=== PATIENT | female | born 1965 | race Caucasian/White ===

== ENCOUNTER → 2017-06-02 08:57 | Outpatient (CLI) | payer BC, SELFPAY ==
[2017-06-02 10:52] LABS: Cholesterol 263 mg/dL (200); High Density Lipoprotein 61 mg/dL; Triglycerides 120 mg/dL; Very Low Density Lipoprotein 24 mg/dL (5-40)
== END ==
PROVIDERS: Family Provider Family Medicine; PCP Family Medicine; Visit Provider Family Medicine
DX: E78.00 Pure hypercholesterolemia, unspecified (principal)
CPT/HCPCS: 36415; 80061

== ENCOUNTER → 2017-09-15 10:51 | Outpatient (CLI) | payer BC, SELFPAY ==
[2017-09-15 12:32] LABS: Cholesterol 173 mg/dL (200); Glucose 79 mg/dL (74-106); High Density Lipoprotein 64 mg/dL; Triglycerides 94 mg/dL; Very Low Density Lipoprotein 19 mg/dL (5-40)
== END ==
PROVIDERS: Family Provider Family Medicine; PCP Family Medicine; Visit Provider Family Medicine
DX: M25.551 Pain in right hip (principal); E78.00 Pure hypercholesterolemia, unspecified
CPT/HCPCS: 36415; 80061; 82947

== ENCOUNTER → 2018-03-17 08:34 | Outpatient (CLI) | payer BC, SELFPAY ==
[2018-03-17 10:40] LABS: Cholesterol 186 mg/dL (200); High Density Lipoprotein 63 mg/dL; Triglycerides 73 mg/dL; Very Low Density Lipoprotein 15 mg/dL (5-40)
--- OUTSIDE RECORDS SUMMARY | 2018-05-03 01:48 | XMS RPT_ITS ---
:1965 Author Organization [facility] Care Team Providers Name Role Phone NEHEMIAH DUMONT Referring Unavailable NEHEMIAH DUMONT Attending Unavailable NEHEMIAH DUMONT Referring Unavailable Aureliano Brower Attending Unavailable Aureliano Brower Referring Unavailable Aureliano Brower Primary Care Unavailable Aureliano Brower Attending Unavailable Aureliano Brower Primary Care Unavailable Auerliano Brower Attending Unavailable Aureliano Brower Referring Unavailable Aureliano Brower Primary Care Unavailable PROBLEMS PROBLEMS DATE TYPE CONDITION / CODE ATTENDING STATUS SOURCE Active Encounter for NA Active [place] [address] gynecological examination Clinic Main (general) (routine) [place] without abnormal findings Repository / Z01.419(ICD-10) Active Encounter for screening NA Active [place] [address] mammogram for malignant Clinic Main neoplasm of breast / [place] Z12.31(ICD-10) Repository Unknown 272.0 - Aureliano Anaya 8 hypercholesterolemia / Community 272.0(ICD-9) Hospital Repository Unknown E78.00 - Aureliano Anaya 8 hypercholesterolemia, Community unspecified / Hospital E78.00(ICD-10) Repository PROCEDURES PROCEDURES No Procedure Records FoundRESULTS RESULTS PROGRESS Observed: 04/21/2018 Status: COMPLETED Source: [place] 9:08 AM [facility] REPOSITORY HNO ID: [id number] Author: Bina Bailey Psr Service: (none) Author Type: (none) Type: Progress Notes Filed: 04/21/2018 9:09 AM Note Text: Spoke with patient, she is unsure about having a colonoscopy and needs to think about it, She would like to just have us send her a letter for her to have for when she is ready to schedule. Bina Bailey Psr PROGRESS Observed: 04/20/2018 Status: COMPLETED Source: [place] 12:17 PM [facility] REPOSITORY HNO ID: [id number] Author: Nehemiah Dumont Service: (none) Author Type: Physician Type: Progress Notes Filed: 04/20/2018 12:19 PM Note Text: TR OPEN ACCESS QUESTIONNAIRE 1. Are you or could you be ? No 2. Are you currently having any stomach/gastrointestinal issues at this time such as constipation, diarrhea, abdominal pain, rectal bleeding etc? No 3. Do you have an implanted device such as a defibrillator, pacemaker, Cardiac Stent or deep brain stimulation device? No 4. Do you have any new or past cardiac (heart) or pulmonary (lung) issues? No 5. Is the patient's BMI 40 or greater? No:Body mass index is 34.96 kg/m?.. Last Wt 04/20/18 : 182 lb (82.6 kg) Last Ht 04/20/18 : 5' 0.5 (1.537 m) 6. Have you had difficulty with prior sedations or complications with other procedures? No 7. Have you had difficulty with anesthesia previously re: ? Difficult intubation? No ? Other difficulty or allergic reaction to anesthesia other than post op N/V? No 8. Do you currently use oxygen or a breathing machine at night? No 9. Do you take any narcotics, depression or anti-Anxiety medications or 3 or more prescription drugs on a daily basis? No 10. Do you use any illegal or recreational drugs? No 11. Have you been hospitalized in the past 6 weeks? No 12. Are you on dialysis or have Chronic Kidney Disease? No 13. Have you been diagnosed with chronic liver disease such as hepatitis or cirrhosis? No 14. Do you have a seizure disorder? No 15. Do you have difficulty swallowing? No 16. Do you have ulcerative colitis or Crohn's disease? No 17. Do you take any Blood thinners, including Aspirin or fish oil? No 18. Do you have any blood disorders (re:hemophiliac)? No 19. Are you Diabetic? No 20. Any other important health information we should be made aware of prior to your colonoscopy? No 21. Any alcohol use: No. To be completed by LIP: Patient appropriate for Open Access Colonoscopy: Yes: appropriate for Open Access Procedure Checklist: Prior to closing the encounter: ? Complete questionnaire: Yes ? Confirm Prep order has been Ordered/Pended: Yes. ? Patient's procedure could be delayed if not given the script for the prep. Please ensure the prep is escripted to pharmacy or printed. Instructions for the prep will print upon filing or pending this smartset. ? Please send all open access questionnaires to [facility] Sched Pool #[id number] [facility] Observed: 04/20/2018 Status: COMPLETED Source: [place] 12:05 PM [facility] REPOSITORY HNO ID: [id number] Author: Mammography Coordinator Service: (none) Author Type: Physician Type: Letter Filed: 04/21/2018 11:31 PM Note Text: April 20, 2018 PID: [id number] Ashley Zamarripa [address] [place] [address] Dear Ms. Zamarripa, We are pleased to inform you that the results of your recent breast imaging exam on 04/20/2018 are normal. Your mammogram demonstrates that you have dense breast tissue, which could hide abnormalities. Dense breast tissue, in and of itself, is a relatively common condition. Therefore, this information is not provided to cause undue concern; rather, it is to raise your awareness and promote discussion with your health care provider regarding the presence of dense breast tissue in addition to other risk factors. Early detection of cancer is very important. We also understand recommendations regarding breast cancer screening are controversial. Please discuss with your primary care provider which strategy is best for you and whether a mammogram is right for you. Your imaging studies and report will be kept on file at [facility] as part of your permanent medical record and are available for your continuing care. Thank you for allowing us to help in meeting your health care needs. Sincerely, Dr. Wilburn Interpreting Radiologist [facility] (Normal over 40) HPV W/GENOTYPE Collected: 04/20/2018 Status: F Source: [place] 11:59 AM [facility] REPOSITORY TYPE CODE TESTS RESULT OUT OF REFERENCE UNITS RANGE LAB HPVT16 HPV HighRisk Negative for Type 16 HPV DNA high risk type 16 by PCR. LAB HPVT18 HPV HighRisk Negative for Type 18 HPV DNA high risk type 18 by PCR. LAB HPVHRO HPV HighRisk Negative for Other HPV DNA high risk types: 31,33,35,39,45 ,51,52,56,58,5 9,66,68 by PCR. Result Comment: This test was developed and its performance characteristics determined by [facility]'s [facility] [place] [facility] It has not been cleared or approved by the FDA. [facility] is regulated under CLIA as qualified to perform high-complexity testing. This test is used for clinical purposes. It should not be regarded as inv estigational or for research. Performed By: #### HPVHRR #### [facility] [address], [place] [address] CYTOLOGY Observed: 04/20/2018 Status: C Source: [place] 11:59 AM [facility] REPOSITORY ADDITIONAL PROCEDURES PRESENT Specimen originated from [facility] Specimen #: [id number] Submitting Physician: NEHEMIAH DUMONT M.D. ([id number]) SPECIMEN SUBMITTED A: CERVICAL, SCREENING, FLUID FINAL DIAGNOSIS A. CERVICAL, SCREENING, FLUID Satisfactory for interpretation. Negative for intraepithelial lesion or malignancy. Acute inflammation. This specimen has been analyzed by the ThinPrep Imaging System, an automated imaging and review system, which assists the laboratory in evaluating cells on ThinPrep Pap tests. Following automated imaging, selected adams from every slide are reviewed by a director of radio services. MARY Arnold(ASCP) (Electronic Signature) ADDITIONAL PROCEDURE(S) HUMAN PAPILLOMA VIRUS Date Ordered: 04/21/2018 Date Reported: 04/22/2018 Procedure Results and Interpretation Negative for HPV DNA high risk type 16 by PCR. Negative for HPV DNA high risk type 18 by PCR. Negative for HPV DNA high risk types: 31,33,35,39,45,51,52,56,58,59,66,68 by PCR. This test was developed and its performance characteristics determined by [facility]'s [facility] [place] ([facility]). It has not been cleared or approved by the FDA. [facility] is regulated under CLIA as qualified to perform high-complexity testing. This test is used for clinical purposes. It should not be regarded as investigational or for research. CLINICAL DATA ROUTINE EXAM, HPV Testing: Yes, automatic HPV patients over 30 Date of Last Menstrual Period: Postmenopausal STAINS A: CERVICAL, SCREENING, FLUID THIN PREP DIRECTOR OF RADIOLOGY Nicky Macdonald M.D., Incinerator Plant Laborer Date of Report: 04/24/2018 Date of Procedure: 04/20/2018 Date of Receipt: 04/21/2018 Submitted by: NEHEMIAH DUMONT M.D. ([id number]) Location: [place] Diagnostic interpretation performed at [facility], [address] [place] [address]. The Pap Smear is a screening test for cervical cancer. False negative results occur with all screening tests, emphasizing the need for rescreening at recommended intervals, and clinical correlation. PROGRESS Observed: 04/20/2018 Status: COMPLETED Source: [place] 11:36 AM [facility] REPOSITORY HNO ID: [id number] Author: Nehemiah Dumont Service: (none) Author Type: Physician Type: Progress Notes Filed: 04/20/2018 12:08 PM Note Text: Ashley Zamarripa is a 52 year old who presents for her annual gynecologic exam without complaints. Menses: none. Contraception: menopause HPV vaccine: No Last Pap: 2013 normal HPV: negative History of abnormal pap: No Last mammogram: today pending Sexually active: Yes Obstetric History T0 L2 SAB1 TAB0 Ectopic0 Multiple0 Live Births0 PAST MEDICAL HISTORY Diagnosis Date - Costochondritis PAST SURGICAL HISTORY Procedure Laterality Date - DELIVERY ONLY - DANDC, DIAG AND/OR THERAPEUTIC FAMILY HISTORY Problem Relation Age of Onset - Diabetes Mother Diet controlled - other (hip problem) Mother Hip replacements - other (Heart problem) Father Stent placed SOCIAL HISTORY Social History Substance Use Topics - Smoking status: Never Smoker - Smokeless tobacco: Never Used - Alcohol use No REVIEW OF SYSTEMS Abdomen: No abdominal pain, nausea, vomiting, diarrhea, or constipation. No bloating, early satiety, indigestion, or increased flatulence. Bladder: No dysuria, gross hematuria, urinary frequency, urinary urgency, or incontinence. Breast: No breast lumps, nipple d/c, overlying skin changes, redness or skin retraction. Allergies and current medication updated:Yes EXAM: Ht 5' .5 (1.54m) Wt 182 lb (82.6kg) BMI 34.95 kg/(m2). GENERAL: pleasant, female in no apparent distress HEENT: Normocephalic, atraumatic, mucus membranes moist and no lesions NECK: Supple, full range of motion, no adenopathy and thyroid normal DERMATOLOGY: Normal, without lesions, non-icteric and non-hirsute BREAST: soft, non-tender, symmetric, no dominant mass, normal nipple-areolar complex, no lymphadenopathy and no nipple discharge CHEST: Normal inspiratory effort ABDOMEN: soft, non-tender and no masses PELVIC: external genitalia normal, normal Bartholin's glands, urethra, [place]'s glands, no vulvar lesions, no cervical lesions, good vaginal support, physiologic discharge present, normal appearing perineal body and perianal region BIMANUAL: uterus normal size, shape and consistency, no adnexal masses and non-tender RECTOVAGINAL: deferred. NEURO: alert and oriented x3,exam grossly non-focal EXTREMITIES: normal ASSESSMENT/PLAN: 1) Health maintenance: Pap done with HPV. Mammogram ordered. 2) Contraception: menopause. Contraceptive options reviewed and information provided. 3) STD screening: Declined STD check. 4) Follow up one year or sooner as needed Nehemiah Dumont MD [facility] SCREENING Observed: 04/20/2018 Status: F Source: [place] 11:20 AM [facility] REPOSITORY * * *Final Report* * * DATE OF EXAM: Apr 20 2018 11:20AM [facility] [id number] - [facility] SCREENING / PROCEDURE REASON: multiple diagnoses * * * * Physician Interpretation * * * * RESULT: #[id number] - [facility] SCREENING BILATERAL DIGITAL SCREENING MAMMOGRAM WITH CAD: 04/20/2018 HISTORY: Screening Mammogram - patient reports NO breast symptoms /priors available for comparison. RESULT: TECHNIQUE: The study was acquired using full field digital technology and interpreted from soft copy. Current study was also evaluated with a Computer Aided Detection (CAD). Comparison is made to exams dated: 04/14/2017 mammogram, 03/27/2016 mammogram, 02/11/2015 mammogram, and 01/10/2013 mammogram - [facility]. The tissue of both breasts is heterogeneously dense. This may lower the sensitivity of mammography. No significant masses, calcifications, or other findings are seen in either breast. There has been no significant interval change. IMPRESSION: There is no mammographic evidence of malignancy. A 1 year screening mammogram is recommended. Dixon Wilburn M.D., jr/zeinab:04/20/2018 12:05:37 Cut File Clerk(s): RT Patrice(R)(M), [facility] letter sent: Normal over 40 Mammogram BI-RADS: 1 Negative Multiple national specialty organizations have released breast cancer screening guidelines for women at average risk for developing breast cancer - guidelines that are based on both evidence and opinion, yet differ on when to start and how often to screen for breast cancer. With representation from Breast Imaging, Internal Medicine, Women's Health, Family Medicine, and Medical/Surgical Oncology, the [facility] has carefully reviewed the data and reached the following consensus: 1) All women should engage in shared decision-making with their providers to decide when to start and how often to screen; 2) All women should have the opportunity to start screening mammography at age 40; 3) For women ages 45-55, we recommend annual screening mammograms; 4) For women ages 55 and over, we support both the transition from an annual to a biennial interval if this aligns more with patient's values and preferences, or continuation with annual screening; 5) All women should discuss with their providers when to stop screening mammograms. Firearms Expert: Zeinab Transcribe Date/Time: Apr 20 2018 10:48A Dictated by: DIXON WILBURN MD This examination was interpreted and the report reviewed and electronically signed by: DIXON WILBURN MD on Apr 20 2018 12:05PM EST [id number] CNOV Observed: 04/20/2018 Status: COMPLETED Source: [place] 11:20 AM [facility] REPOSITORY Office Visit (WOOB) ASHLEY ZAMARRIPA ([id number]) 1965 F Date Time Provider Department 04/20/18 11:20 AM NEHEMIAH DUMONT During your visit today, we recorded the following information about you: Blood pressure Weight Height 104/70 82.6 kg 1.537 m Nehemiah Dumont MD 04/20/2018 12:08 PM Signed Ashleyamanda Zamarripa is a 52 year old who presents for her annual gynecologic exam without complaints. Menses: none. Contraception: menopause HPV vaccine: No Last Pap: 2013 normal HPV: negative History of abnormal pap: No Last mammogram: today pending Sexually active: Yes Obstetric History T0 L2 SAB1 TAB0 Ectopic0 Multiple0 Live Births0 PAST MEDICAL HISTORY Diagnosis Date - Costochondritis PAST SURGICAL HISTORY Procedure Laterality Date - DELIVERY ONLY - DANDC, DIAG AND/OR THERAPEUTIC FAMILY HISTORY Problem Relation Age of Onset - Diabetes Mother Diet controlled - other (hip problem) Mother Hip replacements - other (Heart problem) Father Stent placed SOCIAL HISTORY Social History Substance Use Topics - Smoking status: Never Smoker - Smokeless tobacco: Never Used - Alcohol use No REVIEW OF SYSTEMS Abdomen: No abdominal pain, nausea, vomiting, diarrhea, or constipation. No bloating, early satiety, indigestion, or increased flatulence. Bladder: No dysuria, gross hematuria, urinary frequency, urinary urgency, or incontinence. Breast: No breast lumps, nipple d/c, overlying skin changes, redness or skin retraction. Allergies and current medication updated:Yes EXAM: Ht 5' .5 (1.54m) Wt 182 lb (82.6kg) BMI 34.95 kg/(m2). GENERAL: pleasant, female in no apparent distress HEENT: Normocephalic, atraumatic, mucus membranes moist and no lesions NECK: Supple, full range of motion, no adenopathy and thyroid normal DERMATOLOGY: Normal, without lesions, non-icteric and non-hirsute BREAST: soft, non-tender, symmetric, no dominant mass, normal nipple-areolar complex, no lymphadenopathy and no nipple discharge CHEST: Normal inspiratory effort ABDOMEN: soft, non-tender and no masses PELVIC: external genitalia normal, normal Bartholin's glands, urethra, [place]'s glands, no vulvar lesions, no cervical lesions, good vaginal support, physiologic discharge present, normal appearing perineal body and perianal region BIMANUAL: uterus normal size, shape and consistency, no adnexal masses and non-tender RECTOVAGINAL: deferred. NEURO: alert and oriented x3,exam grossly non-focal EXTREMITIES: normal ASSESSMENT/PLAN: 1) Health maintenance: Pap done with HPV. Mammogram ordered. 2) Contraception: menopause. Contraceptive options reviewed and information provided. 3) STD screening: Declined STD check. 4) Follow up one year or sooner as needed MD Nehemiah Chung MD 04/20/2018 12:19 PM Signed [facility] OPEN ACCESS QUESTIONNAIRE 1. Are you or could you be ? No 2. Are you currently having any stomach/gastrointestinal issues at this time such as constipation, diarrhea, abdominal pain, rectal bleeding etc? No 3. Do you have an implanted device such as a defibrillator, pacemaker, Cardiac Stent or deep brain stimulation device? No 4. Do you have any new or past cardiac (heart) or pulmonary (lung) issues? No 5. Is the patient's BMI 40 or greater? No:Body mass index is 34.96 kg/m?.. Last Wt 04/20/18 : 182 lb (82.6 kg) Last Ht 04/20/18 : 5' 0.5 (1.537 m) 6. Have you had difficulty with prior sedations or complications with other procedures? No 7. Have you had difficulty with anesthesia previously re: ? Difficult intubation? No ? Other difficulty or allergic reaction to anesthesia other than post op N/V? No 8. Do you currently use oxygen or a breathing machine at night? No 9. Do you take any narcotics, depression or anti-Anxiety medications or 3 or more prescription drugs on a daily basis? No 10. Do you use any illegal or recreational drugs? No 11. Have you been hospitalized in the past 6 weeks? No 12. Are you on dialysis or have Chronic Kidney Disease? No 13. Have you been diagnosed with chronic liver disease such as hepatitis or cirrhosis? No 14. Do you have a seizure disorder? No 15. Do you have difficulty swallowing? No 16. Do you have ulcerative colitis or Crohn's disease? No 17. Do you take any Blood thinners, including Aspirin or fish oil? No 18. Do you have any blood disorders (re:hemophiliac)? No 19. Are you Diabetic? No 20. Any other important health information we should be made aware of prior to your colonoscopy? No 21. Any alcohol use: No. To be completed by LIP: Patient appropriate for Open Access Colonoscopy: Yes: appropriate for Open Access Procedure Checklist: Prior to closing the encounter: ? Complete questionnaire: Yes ? Confirm Prep order has been Ordered/Pended: Yes. ? Patient's procedure could be delayed if not given the script for the prep. Please ensure the prep is escripted to pharmacy or printed. Instructions for the prep will print upon filing or pending this smartset. ? Please send all open access questionnaires to [facility] Sched Pool #[id number] Nehemiah Dumont MD 04/20/2018 12:19 PM Signed Health Information For Patients and the Community How to Prepare for Your Colonoscopy Using Golytely, Nulytely, Trilyte or Colyte Preparations IMPORTANT - Please Read These Instructions at Least 2 Weeks Before Your Colonoscopy [place] Instructions: ?Your bowel must be empty so that your doctor can clearly view your colon. Follow all of the instructions in this handout EXACTLY as they are written. If you do NOT follow the directions for when to start drinking the bowel preparation (see next page), your colonoscopy WILL be cancelled. ?Do NOT eat any solid food the ENTIRE day before your colonoscopy. ?Buy your bowel preparation at least 5 days before your colonoscopy. ?Do NOT mix the solution until the day before your colonoscopy. Designated Cross Cut Saw Operator on the Day of Your Exam A responsible family member or friend MUST come with you to your colonoscopy and REMAIN in the endoscopy area until you are discharged! You are NOT ALLOWED to drive, take a taxi or bus, or leave the Endoscopy Center ALONE. If you do not have a responsible bulk truck driver (family member or friend) with you to take you home, your exam cannot be done with sedation and will be cancelled. Medications Some of the medicines you take may need to be stopped or adjusted before your colonoscopy. You MUST call the doctor who ordered any of the following medicines at least 2 weeks before your colonoscopy. ?Blood thinners -- such as Coumadin? (warfarin), Plavix? (clopidogrel), Ticlid? (ticlopidine hydrochloride), Agrylin? (anagrelide), Xarelto? (Rivaroxaban), Pradaxa? (Dabigatran), Eliquis? (Apixaban), and Effient? (Prasugrel). ?Insulin or diabetes pills. Please call the doctor that monitors your glucose levels. Your insulin dosage may need to be adjusted due to the diet restrictions required with this bowel preparation. (Please bring your diabetes medicines with you on the day of your procedure.) If you take aspirin, take it and ALL other medications prescribed by your doctor. On the day of your colonoscopy, take your medications with a sip of water. Revised 05/2016 1 Five (5) Days Before Your Colonoscopy ?Do NOT take medicines that stop diarrhea -- such as Imodium?, Kaopectate?, or Pepto Bismol?. ?Do NOT take fiber supplements -- such as Metamucil?, Citrucel?, or Perdiem?. ?Do NOT take products that contain iron -- such as multi-vitamins -- (the label lists what is in the products). ?Do NOT take vitamin E. Buy the prescription bowel preparation solution at your local pharmacy or drugstore pharmacy. Three (3) Days Before Your Colonoscopy Do NOT eat high-fiber foods -- such as popcorn, beans, seeds (flax, sunflower, quinoa), multigrain bread, nuts, salad/vegetables, or fresh and dried fruit. One (1) Day Before Your Colonoscopy Only drink clear liquids the ENTIRE DAY before your colonoscopy. Do NOT eat any solid foods. Drink at least 8 ounces of clear liquids every hour after waking up. The clear liquids you can drink include: ?water, apple, or white grape juice; broth; coffee or tea (without milk or creamer); clear carbonated beverages such as lucy mariama or lemon-quileute soda; Gatorade? or other sports drinks (not red); Jhony-Aid? or other flavored drinks (not red). You may eat plain jello or other gelatins (not red) or popsicles (not red). Do NOT drink alcohol on the day before or the day of the procedure. 2 Revised 05/2016 When to Mix and Drink Your Bowel Prep Follow the instructions on the label. After mixing, place the solution in the refrigerator for a couple of hours before drinking. You may add the flavor packet that came with the bowel preparation. DO NOT add ice, sugar or any flavorings to the solution. Evening Before Your Colonoscopy ?Start drinking the bowel preparation at 6 PM the evening before your colonoscopy. Drink an 8-oz glass of bowel preparation every 10 minutes. You must finish drinking the solution by 9 PM the night before your scheduled procedure. ?You may continue to drink clear liquids only until midnight. Do NOT eat or drink ANYTHING after midnight the night before your procedure or your procedure may be cancelled. This is for your safety and will reduce the risk of having any food or liquid in your stomach move into your lungs (aspiration) during a procedure. If you take aspirin, take it and ALL other prescribed medicines with a sip of water on the day of your colonoscopy. Contact Information: If you are unable to keep your appointment or have any questions about the instructions, please call the facility where the procedure is being performed. Call between the hours of 8:00 AM and 5:00 PM. If you are calling after 5:00 PM, please call Nurse functional support analyst at [phone]. [facility] [address] [place] [address] Index # [id number] Revised 05/2016 3 Colonoscopy Procedure Overview Please Read Prior to the Procedure What is a Colonoscopy A colonoscopy is an outpatient procedure in which the inside of the large intestine (colon and rectum) is examined. A colonoscopy is commonly used to evaluate gastrointestinal symptoms, such as rectal and intestinal bleeding, abdominal pain, or changes in bowel habits. Colonoscopies are also performed in individuals without symptoms to check for colorectal polyps or cancer. A screening colonoscopy is recommended for anyone 50 years of age and older, and for anyone with parents, siblings or children with a history of colorectal cancer or polyps. What Happens Before a Colonoscopy To have a successful colonoscopy, your bowel must be empty so that your physician can clearly view the colon. To do this, it is very important to read and follow all of the instructions given to you at least 2 weeks BEFORE your exam. If your bowel is not empty, your colonoscopy will not be successful and may have to be repeated. If you feel nauseated or vomit while taking the bowel preparation, wait 30 minutes before drinking more fluid and start with small sips of solution. Some activity (such as walking) or a few soda crackers may help decrease the nausea you are feeling. If the nausea persists, please contact nurse shop and alteration tailor at [phone]. You may experience skin irritation around the anus due to the passage of liquid stools. To prevent and treat skin irritation, you should: ?Apply Vaseline? or Desitin? ointment to the skin around the anus before drinking the bowel preparation medications. These products can be purchased at any drugstore. ?Wipe the skin after each bowel movement with disposable wet wipes instead of toilet paper. These are found in the toilet paper area of the store. ?Sit in a bathtub filled with warm water for 10 to 15 minutes after you finish passing a stool; after soaking, blot the skin dry with a soft cloth, apply Vaseline? or Desitin? ointment to the anal area, and place a cotton ball just outside your anus to absorb leaking fluid. What Happens During a Colonoscopy During a colonoscopy, an experienced physician uses a colonoscope (a long, flexible instrument about 1/2 inch in diameter) to view the lining of the colon. The colonoscope is inserted into the rectum and advanced through the large intestine. If necessary during a colonoscopy, small amounts of tissue can be removed for analysis (a biopsy) and polyps can be identified and entirely removed. In many cases, a colonoscopy allows accurate diagnosis and treatment of colorectal problems without the need for a major operation. Revised 05/2016 5 ?You are asked to wear a hospital gown and an IV will be started. ?You are given a pain reliever and a sedative intravenously (in your vein). You will feel relaxed and somewhat drowsy. ?You will lie on your left side, with your knees drawn up towards your chest. ?A small amount of air is used to expand the colon so the physician can see the colon smith. ?You may feel mild cramping during the procedure. Cramping can be reduced by taking slow, deep breaths. ?The colonoscope is slowly withdrawn while the lining of your bowel is carefully examined. ?The procedure lasts from 30 minutes to 1 hour. What Happens After a Colonoscopy ?You will stay in a recovery room for observation until you are ready for discharge. ?You may feel some cramping or a sensation of having gas, but this quickly passes. ?If sedation has been given, a responsible family member or friend must drive you home. ?Avoid alcohol, driving, and operating machinery for 24 hours following the procedure. ?Unless otherwise instructed, you may immediately return to your normal diet. We recommend you wait until the day after your procedure to resume normal activities. ?If polyps were removed or a biopsy was taken, the physician performing your colonoscopy will tell you when it is safe to resume taking your blood thinners. ?If a biopsy was taken or a polyp was removed, you may notice a little amount of rectal bleeding for 1 to 2 days after the procedure. If you have a large amount of rectal bleeding, high or persistent fevers, or severe abdominal pain within the next 2 weeks, please go to your local emergency room and call the physician who performed your exam. 6 Revised 05/2016 ?Copyright 5449-2479 [facility]. All rights reserved. Revised 05/2016 Nehemiah Dumont MD 04/20/2018 12:32 PM Signed Addended by: NEHEMIAH DUMONT MD on: 04/20/2018 12:32 PM Modules accepted: Orders, Lior Grigsby APRN.QUARRYMAN 04/21/2018 8:55 AM Signed Addended by: MAYURI GRIGSBY on: 04/21/2018 08:55 AM Modules accepted: Orders Bina Bailey Psr 04/21/2018 9:09 AM Signed Spoke with patient, she is unsure about having a colonoscopy and needs to think about it, She would like to just have us send her a letter for her to have for when she is ready to schedule. Bina Bailey Psr Referring Provider: NEHEMIAH DUMONT [[id number]] Allergies As of Date: 04/20/2018 Noted Allergy Reaction PENICILLINS 11/24/2005 Date Reviewed: 04/20/2018 Reviewed by: Nehemiah Dumont - Fully Assessed Reason for Visit: Yearly Exam With Mammogram [188] Primary Visit Diagnosis:Special screening for malignant neoplasms, colon [Z12.11] Other Visit Diagnoses:Encounter for gynecological examination (general) (routine) without abnormal findings [Z01.419] Screening for cervical cancer [Z12.4] Encounter for screening for human papillomavirus (HPV) [Z11.51] Encounter for screening mammogram for breast cancer [Z12.31] Order(s):PAP FLUID CERVICAL SCREENING [7611259] Order #: [id number] IDALMIS SCREENING [3414152] Order #: [id number] FUTURE peg 3350-electrolytes (COLYTE) 240-22.72-6.72 -5.84 gram solutionTake 4,000 mL by mouth one time only for 1 dose.Disp: 4000 mLRfl: 0 COLONOSCOPY SCRN NOT HIGH RISK [Y0300YSZ] Order #: [id number] FUTURE Prescriptions as of 04/20/2018 Sig: PEG 3350 240 GRAM-ELECTROLYTE* Take 4,000 mL by mouth one ti* ATORVASTATIN 10 MG TABLET Take 10 mg by mouth daily at * AVIANE 0.1 MG-20 MCG TABLET Take 1 tablet by mouth once d* MULTIVITAMIN ORAL Take by mouth. Problem List As Of Date 04/20/2018 Noted Resolved Contraceptive management [Z30.9] INVALID FOR* Pure hypercholesterolemia [E78.00] INVALID FOR* Other instructions from your clinician: Health Information For Patients and the Community How to Prepare for Your Colonoscopy Using Golytely, Nulytely, Trilyte or Colyte Preparations IMPORTANT - Please Read These Instructions at Least 2 Weeks Before Your Colonoscopy Parikh Instructions: ?Your bowel must be empty so that your doctor can clearly view your colon. Follow all of the instructions in this handout EXACTLY as they are written. If you do NOT follow the directions for when to start drinking the bowel preparation (see next page), your colonoscopy WILL be cancelled. ?Do NOT eat any solid food the ENTIRE day before your colonoscopy. ?Buy your bowel preparation at least 5 days before your colonoscopy. ?Do NOT mix the solution until the day before your colonoscopy. Designated Cross Cut Saw Operator on the Day of Your Exam A responsible family member or friend MUST come with you to your colonoscopy and REMAIN in the endoscopy area until you are discharged! You are NOT ALLOWED to drive, take a taxi or bus, or leave the Endoscopy Center ALONE. If you do not have a responsible bulk truck driver (family member or friend) with you to take you home, your exam cannot be done with sedation and will be cancelled. Medications Some of the medicines you take may need to be stopped or adjusted before your colonoscopy. You MUST call the doctor who ordered any of the following medicines at least 2 weeks before your colonoscopy. ?Blood thinners -- such as Coumadin? (warfarin), Plavix? (clopidogrel), Ticlid? (ticlopidine hydrochloride), Agrylin? (anagrelide), Xarelto? (Rivaroxaban), Pradaxa? (Dabigatran), Eliquis? (Apixaban), and Effient? (Prasugrel). ?Insulin or diabetes pills. Please call the doctor that monitors your glucose levels. Your insulin dosage may need to be adjusted due to the diet restrictions required with this bowel preparation. (Please bring your diabetes medicines with you on the day of your procedure.) If you take aspirin, take it and ALL other medications prescribed by your doctor. On the day of your colonoscopy, take your medications with a sip of water. Revised 05/2016 1 Five (5) Days Before Your Colonoscopy ?Do NOT take medicines that stop diarrhea -- such as Imodium?, Kaopectate?, or Pepto Bismol?. ?Do NOT take fiber supplements -- such as Metamucil?, Citrucel?, or Perdiem?. ?Do NOT take products that contain iron -- such as multi- vitamins -- (the label lists what is in the products). ?Do NOT take vitamin E. Buy the prescription bowel preparation solution at your local pharmacy or drugstore pharmacy. Three (3) Days Before Your Colonoscopy Do NOT eat high-fiber foods -- such as popcorn, beans, seeds (flax, sunflower, quinoa), multigrain bread, nuts, salad/vegetables, or fresh and dried fruit. One (1) Day Before Your Colonoscopy Only drink clear liquids the ENTIRE DAY before your colonoscopy. Do NOT eat any solid foods. Drink at least 8 ounces of clear liquids every hour after waking up. The clear liquids you can drink include: ?water, apple, or white grape juice; broth; coffee or tea (without milk or creamer); clear carbonated beverages such as lucy mariama or lemon-quileute soda; Gatorade? or other sports drinks (not red); Jhony-Aid? or other flavored drinks (not red). You may eat plain jello or other gelatins (not red) or popsicles (not red). Do NOT drink alcohol on the day before or the day of the procedure. 2 Revised 05/2016 When to Mix and Drink Your Bowel Prep Follow the instructions on the label. After mixing, place the solution in the refrigerator for a couple of hours before drinking. You may add the flavor packet that came with the bowel preparation. DO NOT add ice, sugar or any flavorings to the solution. Evening Before Your Colonoscopy ?Start drinking the bowel preparation at 6 PM the evening before your colonoscopy. Drink an 8-oz glass of bowel preparation every 10 minutes. You must finish drinking the solution by 9 PM the night before your scheduled procedure. ?You may continue to drink clear liquids only until midnight. Do NOT eat or drink ANYTHING after midnight the night before your procedure or your procedure may be cancelled. This is for your safety and will reduce the risk of having any food or liquid in your stomach move into your lungs (aspiration) during a procedure. If you take aspirin, take it and ALL other prescribed medicines with a sip of water on the day of your colonoscopy. Contact Information: If you are unable to keep your appointment or have any questions about the instructions, please call the facility where the procedure is being performed. Call between the hours of 8:00 AM and 5:00 PM. If you are calling after 5:00 PM, please call Nurse functional support analyst at [phone]. [facility] [address] [place] [address] Index # [id number] Revised 05/2016 3 Colonoscopy Procedure Overview Please Read Prior to the Procedure What is a Colonoscopy A colonoscopy is an outpatient procedure in which the inside of the large intestine (colon and rectum) is examined. A colonoscopy is commonly used to evaluate gastrointestinal symptoms, such as rectal and intestinal bleeding, abdominal pain, or changes in bowel habits. Colonoscopies are also performed in individuals without symptoms to check for colorectal polyps or cancer. A screening colonoscopy is recommended for anyone 50 years of age and older, and for anyone with parents, siblings or children with a history of colorectal cancer or polyps. What Happens Before a Colonoscopy To have a successful colonoscopy, your bowel must be empty so that your physician can clearly view the colon. To do this, it is very important to read and follow all of the instructions given to you at least 2 weeks BEFORE your exam. If your bowel is not empty, your colonoscopy will not be successful and may have to be repeated. If you feel nauseated or vomit while taking the bowel preparation, wait 30 minutes before drinking more fluid and start with small sips of solution. Some activity (such as walking) or a few soda crackers may help decrease the nausea you are feeling. If the nausea persists, please contact nurse shop and alteration tailor at [phone]. You may experience skin irritation around the anus due to the passage of liquid stools. To prevent and treat skin irritation, you should: ?Apply Vaseline? or Desitin? ointment to the skin around the anus before drinking the bowel preparation medications. These products can be purchased at any drugstore. ?Wipe the skin after each bowel movement with disposable wet wipes instead of toilet paper. These are found in the toilet paper area of the store. ?Sit in a bathtub filled with warm water for 10 to 15 minutes after you finish passing a stool; after soaking, blot the skin dry with a soft cloth, apply Vaseline? or Desitin? ointment to the anal area, and place a cotton ball just outside your anus to absorb leaking fluid. What Happens During a Colonoscopy During a colonoscopy, an experienced physician uses a colonoscope (a long, flexible instrument about 1/2 inch in diameter) to view the lining of the colon. The colonoscope is inserted into the rectum and advanced through the large intestine. If necessary during a colonoscopy, small amounts of tissue can be removed for analysis (a biopsy) and polyps can be identified and entirely removed. In many cases, a colonoscopy allows accurate diagnosis and treatment of colorectal problems without the need for a major operation. Revised 05/2016 5 ?You are asked to wear a hospital gown and an IV will be started. ?You are given a pain reliever and a sedative intravenously (in your vein). You will feel relaxed and somewhat drowsy. ?You will lie on your left side, with your knees drawn up towards your chest. ?A small amount of air is used to expand the colon so the physician can see the colon smith. ?You may feel mild cramping during the procedure. Cramping can be reduced by taking slow, deep breaths. ?The colonoscope is slowly withdrawn while the lining of your bowel is carefully examined. ?The procedure lasts from 30 minutes to 1 hour. What Happens After a Colonoscopy ?You will stay in a recovery room for observation until you are ready for discharge. ?You may feel some cramping or a sensation of having gas, but this quickly passes. ?If sedation has been given, a responsible family member or friend must drive you home. ?Avoid alcohol, driving, and operating machinery for 24 hours following the procedure. ?Unless otherwise instructed, you may immediately return to your normal diet. We recommend you wait until the day after your procedure to resume normal activities. ?If polyps were removed or a biopsy was taken, the physician performing your colonoscopy will tell you when it is safe to resume taking your blood thinners. ?If a biopsy was taken or a polyp was removed, you may notice a little amount of rectal bleeding for 1 to 2 days after the procedure. If you have a large amount of rectal bleeding, high or persistent fevers, or severe abdominal pain within the next 2 weeks, please go to your local emergency room and call the physician who performed your exam. 6 Revised 05/2016 ?Copyright 1346-8793 [facility]. All rights reserved. Revised 05/2016 Prescriptions ordered this encounter Disp Refills Start End PEG 3350 240 GRAM-ELECTROLYTES 22.72* 4000* 0 04/21/2018 04/21/2018 Route: ORAL Sig: Take 4,000 mL by mouth one time only for 1 dose. Medications Discontinued During This Encounter VORTIOXETINE HYDROBROMIDE (BRINTELLI* 04/20/2018 Class: Historical Med Route: ORAL Sig: Take by mouth. Disc: Reason for discontinue is not on file. Disposition: Return in 1 year (on 04/20/2019) for Annual Exam. Follow-up and Disposition History Recorded Letter Text [address] [place] [address] 04/21/2018 Ashley Zamarripa [id number] Dear Ashley , As your healthcare provider, our records indicate that you are due for colorectal cancer screening. This is extremely important if you have any family history of colon cancer as well as to the general population over the age of 50. A colonoscopy is a preventative test that we offer to complete this screening. Most insurances will pay for this test without any out of pocket expense to the patient. Please contact our schedulers at [phone] to schedule an appointment or contact your primary care physician if you have any questions regarding colon cancer screening. As always, your health is of primary concern to our practice. We look forward to hearing from you. Sincerely, [facility] Encounter Status:Closed by NEHEMIAH DUMONT MD on 04/20/18 PROGRESS Observed: 04/20/2018 Status: COMPLETED Source: [place] 11:02 AM [facility] REPOSITORY HNO ID: [id number] Author: Yue Cadena Service: (none) Author Type: (none) Type: Progress Notes Filed: 04/20/2018 11:03 AM Note Text: Radiology Service Progress Note PATIENT NAME: Ashley Zamarripa DATE OF SERVICE: April 20, 2018 TIME: 11:02 AM PATIENT IDENTITY VERIFICATION COMPLETED USING TWO (2) METHODS: Patient confirmed name verbally and Date of . PATIENT GENDER DATA: Female. status: : No status: NO. PATIENT RELEVANT IMPLANT DATA REVIEWED: Not Applicable RADIOLOGY DEPARTMENT: [facility] IV DATA: Not applicable SIGNED BY: Yue Cadena April 20, 2018 11:02 AM LIPID PROFILE Collected: 03/17/2018 Status: F Source: [place] 8:49 AM [facility] REPOSITORY Order Comment: Order Date: 09/20/17 Order Info: [id number] - LIPID TYPE CODE TESTS RESULT OUT OF RANGE REFERENCE UNITS LAB L501.4900 200 mg/dL Normal CHOL 186 Result Comment: <200 mg/dL Desirable 200-240 mg/dL Borderline >240 mg/dL High Risk LAB L501.5000 mg/dL Normal TRIG 73 Result Comment: The drugs N-Acetylcysteine and Metamizole may falsely depress this assay. Serum Triglycerides Reference Interval Normal <150 mg/dL Borderline high 150 - 199 mg/dL High 200 - 499 mg/dL Very High > or = 500 mg/dL LAB L501.6400 mg/dL Normal HDL 63 Result Comment: The drugs N-Acetylcysteine and Metamizole may falsely depress this assay. Reference Range HDL <40 mg/dL Low HDL Cholesterol HDL >or= 60 mg/dL High HDL Cholesterol LAB L501.6500 0-130 mg/dL Normal LDL 108 LAB L501.6600 5-40 mg/dL Normal VLDL 15 Performed By: #### L500.4100 #### [facility] [place], [address] LIPID PROFILE Collected: 09/15/2017 Status: F Source: [place] 10:53 AM [facility] REPOSITORY Order Comment: Order Date: 06/07/17 Order Info: [id number] - LIPID Order Info: [id number] - GLU TYPE CODE TESTS RESULT OUT OF RANGE REFERENCE UNITS LAB L501.4900 200 mg/dL Normal CHOL 173 Result Comment: <200 mg/dL Desirable 200-240 mg/dL Borderline >240 mg/dL High Risk LAB L501.5000 mg/dL Normal TRIG 94 Result Comment: The drugs N-Acetylcysteine and Metamizole may falsely depress this assay. Serum Triglycerides Reference Interval Normal <150 mg/dL Borderline high 150 - 199 mg/dL High 200 - 499 mg/dL Very High > or = 500 mg/dL LAB L501.6400 mg/dL Normal HDL 64 Result Comment: The drugs N-Acetylcysteine and Metamizole may falsely depress this assay. Reference Range HDL <40 mg/dL Low HDL Cholesterol HDL >or= 60 mg/dL High HDL Cholesterol LAB L501.6500 0-130 mg/dL Normal LDL 90 LAB L501.6600 5-40 mg/dL Normal VLDL 19 Performed By: #### L500.4100, L501.0100 #### [facility] [address] [place], [address] GLUCOSE Collected: 09/15/2017 Status: F Source: [place] 10:53 AM [facility] REPOSITORY Order Comment: Order Date: 06/07/17 Order Info: [id number] - LIPID Order Info: [id number] - GLU TYPE CODE TESTS RESULT OUT OF RANGE REFERENCE UNITS LAB L501.0100 74-106 mg/dL Normal GLU 79 Result Comment: Please note revised GLUCOSE reference range effective 2017. Performed By: #### L500.4100, L501.0100 #### [facility] [address] [place], [address] LIPID PROFILE Collected: 06/02/2017 Status: F Source: [place] 9:03 AM [facility] REPOSITORY Order Comment: Order Date: 11/30/16 Order Info: [id number] - LIPID TYPE CODE TESTS RESULT OUT OF RANGE REFERENCE UNITS LAB L501.4900 200 mg/dL High CHOL 263 Result Comment: <200 mg/dL Desirable 200-240 mg/dL Borderline >240 mg/dL High Risk LAB L501.5000 mg/dL Normal TRIG 120 Result Comment: The drugs N-Acetylcysteine and Metamizole may falsely depress this assay. Serum Triglycerides Reference Interval Normal <150 mg/dL Borderline high 150 - 199 mg/dL High 200 - 499 mg/dL Very High > or = 500 mg/dL LAB L501.6400 mg/dL Normal HDL 61 Result Comment: The drugs N-Acetylcysteine and Metamizole may falsely depress this assay. Reference Range HDL <40 mg/dL Low HDL Cholesterol HDL >or= 60 mg/dL High HDL Cholesterol LAB L501.6500 0-130 mg/dL High LDL 178 LAB L501.6600 5-40 mg/dL Normal VLDL 24 Performed By: #### L500.4100 #### [facility] [address] [place], [address] ALLERGIES ALLERGIES DATE TYPE / CODE NAME / CODE REACTION SEVERITY SOURCE 11/24/2005 Drug PENICILLINS [facility] Class/[address] Main [place] 1003(SNOMED Repository CT) ENCOUNTERS ENCOUNTERS ADMIT/DISCHARGE ACCOUNT ADMITTING ENCOUNTER LOCATION SOURCE NUMBER CLASS 04/20/2018/04/21/19 [id number] [address]ulatory [address] Repository 04/20/2018/04/20/19 [id number] Ambulatory [address] Repository 03/17/2018 [id number] [facility] ing:MTLAB Repository 09/15/2017 [id number] [facility] ing:MTLAB Repository 06/02/2017 [id number] [facility] ing:MTLAB Repository PAYERS PAYERS ENCOUNTER GUARANTOR PAYER SUBSCRIBER SOURCE 03/17/2018 ASHLEY Ford Primary ASHLEY M [place] [id number] [facility] Number: [id number] Repository [address]Zxg: (330) Date:[id number] [phone] () [id number] [place] [address]QM: 03/17/2018 [facility]LF [facility] Number: Effective Repository Date:2018-03-17 09/15/2017 ASHLEY Ford Primary ASHLEY M [place] [id number] [facility] EB[facility]B: [facility] y [place]: [id number] [id number] Repository [address]Ria: (330) Date:[id number] [phone] () [id number], [place] [address]UU: 09/15/2017 Secondary NOT GIVENUNK [place] Insurance:SELF PAY [facility] Number: Effective Repository Date:2017-09-15 06/02/2017 Ashley M Primary ASHLEY M [place] [id number] Insurance:ANTHEMPolic EBERTDOB: [facility] Number: [id number] [place] [id number] Repository [address]Dty: 330) Date:[id number] [phone] () [id number], [place] [address]ZT: 06/02/2017 Secondary NOT GIVENUNK [place] Insurance:SELF PAY [facility] Number: Effective Repository Date:2017-06-02
== END ==
PROVIDERS: Family Provider Family Medicine; PCP Family Medicine; Referring Provider Family Medicine; Visit Provider Family Medicine
DX: E78.00 Pure hypercholesterolemia, unspecified (principal)
CPT/HCPCS: 36415; 80061

== ENCOUNTER → 2018-09-14 | Outpatient (CLI) | payer BC, SELFPAY ==
[2018-09-14 10:17] LABS: Cholesterol 179 mg/dL (200); Glucose 92 mg/dL (74-106); High Density Lipoprotein 60 mg/dL; Triglycerides 96 mg/dL; Very Low Density Lipoprotein 19 mg/dL (5-40)
== END | disposition home or self-care (01) ==
LOC: MTLAB 08:35
PROVIDERS: Family Provider Family Medicine; PCP Family Medicine; Referring Provider Family Medicine; Visit Provider Family Medicine
DX: E78.00 Pure hypercholesterolemia, unspecified (principal)
CPT/HCPCS: 36415; 80061; 82947

== ENCOUNTER → 2019-03-14 08:47 | Outpatient (CLI) | payer BC, SELFPAY ==
[2019-03-14 10:10] LABS: Absolute Lymphocyte Count 1.77 X10^3/uL (0.83-4.51); Absolute Neutrophil Count 3.3 X10^3/uL (2.0-7.7); Basophil# 0.03 X10^3/uL; Basophil% 0.5 % (0-1); Eosinophil# 0.09 X10^3/uL; Eosinophils% 1.6 % (0-5); Hematocrit 39.8 % (37-47); Hemoglobin 12.8 g/dL (12.0-15.0); Lymphocyte # 1.77 X10^3/ul (4.0); Lymphocyte % 30.7 % (19-41); Mean Corp Hgb Conc 32.2 g/dL (32-36); Mean Corpuscular Hgb 26.3 pg (27.0-32.0); Mean Corpuscular Volume 81.9 fL (81-99); Mean Platelet Vol. 10.4 fl (6.2-12.0); Monocyte# 0.58 X10^3/uL; Monocyte% 10.1 % (0-10); NRBC Flagged by Analyzer 0 % (0-5); Neutrophil # 3.28 X10^3/uL (2.7-7.7); Neutrophil % 56.9 % (47-70); Platelet Count 237 K/mm3 (150-450); RBC Distribution Width CV 14.5 % (11.6-14.6); RBC Distribution Width SD 42.6 fl (35.1-43.9); Red Blood Count 4.86 M/mm3 (4.2-5.4); White Blood Count 5.8 K/mm3 (4.4-11.0)
[2019-03-14 10:38] LABS: Cholesterol 167 mg/dL (200); Glucose 88 mg/dL (74-106); High Density Lipoprotein 66 mg/dL; Triglycerides 66 mg/dL; Very Low Density Lipoprotein 13 mg/dL (5-40)
== END ==
PROVIDERS: Family Provider Family Medicine; PCP Family Medicine; Referring Provider Family Medicine; Visit Provider Family Medicine
DX: E78.00 Pure hypercholesterolemia, unspecified (principal); F41.9 Anxiety disorder, unspecified; J30.9 Allergic rhinitis, unspecified
CPT/HCPCS: 36415; 80061; 82947; 85025

== ENCOUNTER → 2020-03-12 08:31 | Outpatient (CLI) | payer BC, SELFPAY ==
[2020-03-12 09:43] LABS: Absolute Neutrophil Count 3.1 X10^3/uL (2.0-7.7); Basophil# 0.04 X10^3/uL; Basophil% 0.7 % (0-1); Eosinophil# 0.09 X10^3/uL; Eosinophils% 1.6 % (0-5); Hematocrit 41.4 % (37-47); Hemoglobin 13.3 g/dL (12.0-15.0); Lymphocyte % 33.5 % (19-41); Mean Corp Hgb Conc 32.1 g/dL (32-36); Mean Corpuscular Hgb 26.6 pg (27.0-32.0); Mean Corpuscular Volume 82.8 fL (81-99); Mean Platelet Vol. 10.4 fl (6.2-12.0); Monocyte# 0.52 X10^3/uL; Monocyte% 9.2 % (0-10); NRBC Flagged by Analyzer 0 % (0-5); Neutrophil # 3.11 X10^3/uL (2.7-7.7); Neutrophil % 54.6 % (47-70); Platelet Count 248 K/mm3 (150-450); RBC Distribution Width CV 14.2 % (11.6-14.6); RBC Distribution Width SD 42.3 fl (35.1-43.9); White Blood Count 5.7 K/mm3 (4.4-11.0)
[2020-03-12 09:58] LABS: ALB/GLOB Ratio 0.9 RATIO (0.9-2.4); AST(SGOT) 17 U/L (15-37); Alanine Aminotransfer ALT/SGPT 30 U/L (13-56); Albumin, Serum 3.6 g/dL (3.2-5.0); Alkaline Phosphatase 119 U/L (45-117); Anion Gap 3 (5-15); BUN 16 mg/dL (7-18); BUN/Creat Ratio 23.6 RATIO (10-20); Calcium,Total 8.8 mg/dL (8.5-10.1); Chloride 109 mmol/L (98-107); Cholesterol 202 mg/dL (200); Creatinine, Serum 0.68 mg/dL (0.55-1.02); EST Glomerular Filtration Rate 97 mL/min (>60); Est Glom Filt Rate - Afr Amer 117 mL/min (>60); Globulin 4.1 g/dL (2.2-4.2); Glucose 92 mg/dL (74-106); High Density Lipoprotein 68 mg/dL; Protein, Total 7.7 g/dL (6.4-8.2); Sodium Level 141 mmol/L (136-145); Triglycerides 63 mg/dL; Very Low Density Lipoprotein 13 mg/dL (5-40)
[2020-03-12 10:02] LABS: Hemoglobin A1c 5.4 % (3.8-5.6)
== END ==
PROVIDERS: PCP Family Medicine; Referring Provider Family Medicine; Visit Provider Family Medicine
DX: Z00.00 Encounter for general adult medical examination without abnormal findings (principal); E78.00 Pure hypercholesterolemia, unspecified
CPT/HCPCS: 36415; 80053; 80061; 83036; 85025

== ENCOUNTER → 2020-09-26 08:22 | Outpatient (CLI) | payer OTHER, SELFPAY ==
[2020-09-26 10:21] LABS: Cholesterol 203 mg/dL (200); High Density Lipoprotein 63 mg/dL; Triglycerides 76 mg/dL; Very Low Density Lipoprotein 15 mg/dL (5-40)
== END ==
PROVIDERS: PCP Family Medicine; Referring Provider Family Medicine; Visit Provider Family Medicine
DX: E78.00 Pure hypercholesterolemia, unspecified (principal)
CPT/HCPCS: 36415; 80061

== ENCOUNTER → 2021-02-11 12:40 | Outpatient (CLI) | payer OTHER, SELFPAY ==
--- NOTE | 2021-02-11 12:44 | RAD_ITS ---
STUDY: X-RAY - UNILATERAL RIBS ( LEFT ) REASON FOR EXAM: Female, 55 years old. left anterior chest/rib pain x 4 weeks, unsure of any injury TECHNIQUE: 3 view(s) of the ribs. COMPARISON: Chest x-ray dated March 20, 2014 FINDINGS: Normal visualized ribs without a demonstrated fracture. The visualized lung is clear and expanded. RAD/Ribs Unil 2V No CXR IMPRESSION: Normal x-ray examination of the ribs. Electronically Signed: Yves William MD at 18:54 EST , Service support ,
== END ==
PROVIDERS: PCP Family Medicine; Referring Provider Registered Nurse; Visit Provider Registered Nurse
DX: R07.81 Pleurodynia (principal)
CPT/HCPCS: 71100

== ENCOUNTER → 2021-09-30 | Outpatient (CLI) | payer BC, SELFPAY ==
[2021-09-30 12:39] LABS: ALB/GLOB Ratio 0.9 RATIO (0.9-2.4); AST(SGOT) 23 U/L (15-37); Alanine Aminotransfer ALT/SGPT 35 U/L (13-56); Albumin, Serum 3.4 g/dL (3.2-5.0); Alkaline Phosphatase 104 U/L (45-117); Anion Gap 6 (5-15); BUN 16 mg/dL (7-18); BUN/Creat Ratio 23.6 RATIO (10-20); Calcium,Total 8.8 mg/dL (8.5-10.1); Chloride 108 mmol/L (98-107); Cholesterol 163 mg/dL (200); Creatinine, Serum 0.68 mg/dL (0.55-1.02); EST Glomerular Filtration Rate 96 mL/min (>60); Est Glom Filt Rate - Afr Amer 116 mL/min (>60); Globulin 3.9 g/dL (2.2-4.2); Glucose 91 mg/dL (74-106); High Density Lipoprotein 65 mg/dL; Potassium 4.1 mmol/L (3.5-5.1); Protein, Total 7.3 g/dL (6.4-8.2); Sodium Level 141 mmol/L (136-145); Triglycerides 48 mg/dL; Very Low Density Lipoprotein 10 mg/dL (5-40)
== END | disposition home or self-care (01) ==
LOC: MFPLAB 09:06
PROVIDERS: PCP Family Medicine; Visit Provider Family Medicine
DX: Z00.00 Encounter for general adult medical examination without abnormal findings (principal)
CPT/HCPCS: 36415; 80053; 80061

== ENCOUNTER → 2022-10-08 | Outpatient (CLI) | payer BC, SELFPAY ==
[2022-10-08 10:06] LABS: Absolute Lymphocyte Count 2.28 X10^3/uL (0.83-4.51); Basophil# 0.06 X10^3/uL; Eosinophils% 1.7 % (0-5); Hematocrit 39.5 % (37-47); Hemoglobin 12.9 g/dL (12.0-15.0); Lymphocyte # 2.28 X10^3/ul (0.83-4.51); Lymphocyte % 37.9 % (19-41); Mean Corp Hgb Conc 32.7 g/dL (32-36); Mean Corpuscular Volume 82.6 fL (81-99); Mean Platelet Vol. 10.4 fl (6.2-12.0); Monocyte# 0.58 X10^3/uL; Monocyte% 9.7 % (0-10); NRBC Flagged by Analyzer 0 % (0-5); Neutrophil # 2.97 X10^3/uL (2.7-7.7); Neutrophil % 49.4 % (47-70); Platelet Count 234 K/mm3 (150-450); RBC Distribution Width CV 14.5 % (11.6-14.6); Red Blood Count 4.78 M/mm3 (4.2-5.4)
[2022-10-08 11:04] LABS: ALB/GLOB Ratio 0.8 RATIO (0.9-2.4); AST(SGOT) 19 U/L (15-37); Alanine Aminotransfer ALT/SGPT 33 U/L (13-56); Albumin, Serum 3.4 g/dL (3.2-5.0); Alkaline Phosphatase 108 U/L (45-117); Anion Gap 5 (5-15); BUN 16 mg/dL (7-18); BUN/Creat Ratio 23.4 RATIO (10-20); Calcium,Total 8.8 mg/dL (8.5-10.1); Chloride 106 mmol/L (98-107); Cholesterol 185 mg/dL (200); Creatinine, Serum 0.68 mg/dL (0.55-1.02); EST Glomerular Filtration Rate 95 mL/min (>60); Est Glom Filt Rate - Afr Amer 115 mL/min (>60); Globulin 4.1 g/dL (2.2-4.2); Glucose 93 mg/dL (74-106); High Density Lipoprotein 69 mg/dL; Protein, Total 7.5 g/dL (6.4-8.2); Sodium Level 138 mmol/L (136-145); Thyroid Stim Hormone (TSH) 2.56 uIU/mL (0.358-3.74); Triglycerides 62 mg/dL; Very Low Density Lipoprotein 12 mg/dL (5-40)
== END | disposition home or self-care (01) ==
LOC: MFPLAB 08:28
PROVIDERS: PCP Family Medicine; Visit Provider Family Medicine
DX: E78.00 Pure hypercholesterolemia, unspecified (principal)
CPT/HCPCS: 36415; 80053; 80061; 84443; 85025

== ENCOUNTER → 2023-10-12 | Outpatient (CLI) | payer BC, SELFPAY ==
[2023-10-12 12:43] LABS: ALB/GLOB Ratio 0.9 RATIO (0.9-2.4); AST(SGOT) 48 U/L (15-37); Alanine Aminotransfer ALT/SGPT 72 U/L (13-56); Albumin, Serum 3.5 g/dL (3.2-5.0); Alkaline Phosphatase 112 U/L (45-117); Anion Gap 4 (5-15); BUN 17 mg/dL (7-18); BUN/Creat Ratio 25.8 RATIO (10-20); Calcium,Total 9.2 mg/dL (8.5-10.1); Chloride 107 mmol/L (98-107); Cholesterol 177 mg/dL (200); Creatinine, Serum 0.66 mg/dL (0.55-1.02); EST Glomerular Filtration Rate 99 mL/min (>60); Est Glom Filt Rate - Afr Amer 119 mL/min (>60); Globulin 4.1 g/dL (2.2-4.2); Glucose 99 mg/dL (74-106); High Density Lipoprotein 66 mg/dL; Potassium 4.3 mmol/L (3.5-5.1); Protein, Total 7.6 g/dL (6.4-8.2); Sodium Level 138 mmol/L (136-145); Thyroid Stim Hormone (TSH) 2.64 uIU/mL (0.358-3.74); Triglycerides 89 mg/dL; Very Low Density Lipoprotein 18 mg/dL (5-40)
[2023-10-12 12:50] LABS: Absolute Lymphocyte Count 1.75 X10^3/uL (0.83-4.51); Absolute Neutrophil Count 3.8 X10^3/uL (2.0-7.7); Basophil# 0.04 X10^3/uL; Basophil% 0.6 % (0-1); Eosinophil# 0.07 X10^3/uL; Eosinophils% 1.1 % (0-5); Hematocrit 38.6 % (37-47); Hemoglobin 12.2 g/dL (12.0-15.0); Lymphocyte # 1.75 X10^3/ul (0.83-4.51); Lymphocyte % 27.3 % (19-41); Mean Corp Hgb Conc 31.6 g/dL (32-36); Mean Corpuscular Volume 82.3 fL (81-99); Mean Platelet Vol. 10.8 fl (6.2-12.0); Monocyte% 10.9 % (0-10); NRBC Flagged by Analyzer 0 % (0-5); Neutrophil # 3.82 X10^3/uL (2.7-7.7); Neutrophil % 59.6 % (47-70); Platelet Count 230 K/mm3 (150-450); RBC Distribution Width CV 14.8 % (11.6-14.6); RBC Distribution Width SD 43.8 fl (35.1-43.9); Red Blood Count 4.69 M/mm3 (4.2-5.4); White Blood Count 6.4 K/mm3 (4.4-11.0)
== END | disposition home or self-care (01) ==
LOC: MFPLAB 08:57
PROVIDERS: PCP Family Medicine; Visit Provider Family Medicine
DX: E66.3 Overweight (principal); E78.00 Pure hypercholesterolemia, unspecified
CPT/HCPCS: 36415; 80053; 80061; 84443; 85025

== ENCOUNTER → 2024-01-26 | Outpatient (CLI) | payer BC, SELFPAY ==
[2024-01-26 10:33] LABS: Hematocrit 37.9 % (37-47); Hemoglobin 12.2 g/dL (12.0-15.0); Mean Corp Hgb Conc 32.2 g/dL (32-36); Mean Corpuscular Hgb 26.9 pg (27.0-32.0); Mean Corpuscular Volume 83.5 fL (81-99); Mean Platelet Vol. 10.3 fl (6.2-12.0); Platelet Count 230 K/mm3 (150-450); RBC Distribution Width CV 14.5 % (11.6-14.6); Red Blood Count 4.54 M/mm3 (4.2-5.4); White Blood Count 5.3 K/mm3 (4.4-11.0)
[2024-01-26 10:54] LABS: ALB/GLOB Ratio 0.8 RATIO (0.9-2.4); AST(SGOT) 29 U/L (15-37); Alanine Aminotransfer ALT/SGPT 47 U/L (13-56); Albumin, Serum 3.4 g/dL (3.2-5.0); Alkaline Phosphatase 123 U/L (45-117); Anion Gap 5 (5-15); BUN 17 mg/dL (7-18); Calcium,Total 9.1 mg/dL (8.5-10.1); Chloride 110 mmol/L (98-107); Creatinine, Serum 0.65 mg/dL (0.55-1.02); EST Glomerular Filtration Rate 100 mL/min (>60); Est Glom Filt Rate - Afr Amer 121 mL/min (>60); Globulin 4.1 g/dL (2.2-4.2); Glucose 105 mg/dL (74-106); Potassium 4.1 mmol/L (3.5-5.1); Protein, Total 7.5 g/dL (6.4-8.2); Sodium Level 140 mmol/L (136-145)
== END | disposition home or self-care (01) ==
LOC: MFPLAB 08:28
PROVIDERS: PCP Family Medicine; Visit Provider Family Medicine
DX: R79.89 Other specified abnormal findings of blood chemistry (principal)
CPT/HCPCS: 36415; 80053; 84443; 85027

== ENCOUNTER → 2024-06-23 | Outpatient (CLI) | payer BC, SELFPAY ==
[2024-06-23 16:17] LABS: AST(SGOT) 25 U/L (<=31); Alanine Aminotransfer ALT/SGPT 32 U/L (<=34)
== END | disposition home or self-care (01) ==
LOC: MFPLAB 11:53
PROVIDERS: PCP Family Medicine; Referring Provider Family Medicine; Visit Provider Family Medicine
DX: R79.89 Other specified abnormal findings of blood chemistry (principal)
CPT/HCPCS: 36415; 84450; 84460

== ENCOUNTER → 2024-10-16 | Outpatient (CLI) | payer BC, SELFPAY ==
--- OUTSIDE RECORDS SUMMARY | 2024-10-16 09:29 | XMS RPT_ITS | CCD ---
Author Organization [facility] Care Team Providers Care Manager Document Control Name Role Phone Corey DOAureliano Primary Care Provider Landy Jenkins MD Primary Care Provider Landy Jenkins Primary Care Unavailable Boris, Rachanaon Attending Unavailable Boris, Chalon Primary Care Unavailable Boris, Rachanaon Attending Unavailable Boris, Chalon Referring Unavailable Boris, Chalon Primary Care Unavailable Boris, Landy Attending Unavailable Landy Jenkins MD Primary Care Provider Landy Jenkins MD Attending Provider [phone] Landy Jenkins MD Referring Provider [phone] Landy Jenkins MD Primary Care Provider NEJOE QURESHI Referring Unavail able BORIS, CHALON Primary Care Unavailable NEJOE QURESHI Attending Unavail able NEJOE QURESHI Referring Unavail able BORIS, CHALON Primary Care Unavailable Allergies Allergy Classification Reported Allergen(s) Allergy Type Date of Onset Reaction(s) Facility (12 sources) Erythromycin; Translations: [ERYTHROMYCIN] Drug Allergy 04-29-2020 GI Upset [facility] (4 sources) Penicillins; Translations: [PENICILLINS] Propensity to adverse reactions 11-24-2005 [facility] Work Phone: (5 sources) Penicillins Propensity to adverse reactions 11-24-2005 [facility] Work Phone: (3 sources) Penicillins Propensity to adverse reactions 11-24-2005 [facility] Work Phone: Medications Current Medications Medication Drug Class(es) Dates Sig (Normalized) Sig (Original) atorvastatin 10 mg oral tablet (11 sources) HMG-CoA Reductase Inhibitor Start: 03-27-2018 take 1 tablet by mouth once daily at bedtime atorvastatin (LIPITOR) 10 mg tablet Take 10 mg by mouth daily at bedtime. 5 03/27/2018 Active Comment on above: Take 10 mg by mouth daily at bedtime. meloxicam 15 mg oral tablet (11 sources) Nonsteroidal Anti-inflammatory Drug meloxicam (MOBIC) 15 mg tablet Take 15 mg by mouth as needed. Active Comment on above: Take 15 mg by mouth once daily. MULTIVITAMIN ORAL (11 sources) MULTIVITAMIN ORA L Take by mouth. Active MULTIVITAMIN ORA L Take by mouth. 0 Active Comment on above: Take by mouth. Problems Active Problems Problem Classification Problem Date Documented Da te Episodic/Chronic Disorders of lipid metabolism (11 sources) Pure hypercholesterole betty; Translations: [Pure hypercholesterole betty, unspecified] Onset: 06-02-2017 04-20-2018 Chronic Other screening for suspected conditions (not mental disorders or infectious disease) (2 sources) Other specified abnormal findings of blood chemistry; Translations: [Encounter for screening mammogram for malignant neoplasm of breast] Onset: 06-29-2024 Episodic Past or Other Problems Problem Classification Problem Date Documented Date Episodic/Chronic Contraceptive and procreative management (20 sources) Patient encounter status; Translations: [Encounter for contraceptive management, unspecified] Onset: 01-10-2013 01-10-2013 Episodic Other nutritional; endocrine; and metabolic disorders (1 source) Overweight; Translations: [Overweight] Onset: 10-21-2023 Episodic Unclassified (2 sources) Patient encounter status 07-17-2024 Results Test Name Value Interpretation Reference Range Facility [facility] 07-17-2024 CNOV Office Visit (OBGYWM) ASHLEY ZAMARRIPA ([id number]) 1965 F Date Time Provider Department 07/17/24 11:20 AM JOE SOUZA OBGYWLiliana During your visit today, we recorded the following information about you: Blood pressure Weight Height 118/76 88.9 kg 1.549 m Joe Souza MD 07/17/2024 11:42 AM Signed Investments Manager offered: Patient declinesBright Ramirez is a 58 year old who presents for an annual gynecologic exam without complaints. Daughter called off wedding which she is happy about. Working a lot at work which has cut into her exercise time. Postmenopausal: Yes HRT use: No. Sexually active: Yes HPV vaccine: No Last pap smear: 2023 History of abnormal pap: No Bothersome pelvic pain: No Last mammogram: 2024 pending History of abnormal mammogram: No Sexually active: Yes Pain with intercourse: No Postcoital bleeding: No Hot flashes: No Night sweats: No OB History Gravida3 Para0 Term0 Preterm0 AB1 Living2 SAB1 IAB0 Ectopic0 Multiple0 Live Births0 Problem Relation Age of Onset Diabetes Mother Diet controlled Hypertension Mother other (hip problem) Mother Hip replacements other (Heart problem) Father Stent placed Hypertension Brother SOCIAL HISTORY Social History Tobacco Use Smoking status: Never Smokeless tobacco: Never Vaping Use Vaping status: Never Used Substance Use Topics Alcohol use: Yes Comment: socially Drug use: No REVIEW OF SYSTEMS Abdomen: No abdominal pain, nausea, vomiting, diarrhea, or constipation. No bloating, early satiety, indigestion, or increased flatulence. Bladder: No dysuria, gross hematuria, urinary frequency, urinary urgency, or incontinence Breast: No breast lumps, nipple d/c, overlying skin changes, redness or skin retraction Allergies and current medication updated:Yes SENSITIVE EXAM: The sensitive examination was discussed with the Patient or Patient's Authorized Service Captain. As applicable, any other physician, advance practice provider, medical student, or other health professional student that will be observing or involved in the sensitive examination for educational or training purposes was discussed with the Patient or Authorized Service Captain. The Patient or Authorized Service Captain has agreed to proceed with the sensitive examination. (Sensitive examination includes inspection and/or palpation of the breasts, pelvis, prostate and anorectal regions). EXAM: BP 118/76 Ht 5' 1 (1.55m) Wt 196 lb (88.9kg) LMP 03/30/2017 BMI 37.05 kg/(m2). GENERAL: pleasant, female in no apparent distress HEENT: Normocephalic, atraumatic, mucus membranes moist, and no lesions NECK: Supple, full range of motion, no adenopathy, and thyroid normal DERMATOLOGY: Normal, without lesions, non-icteric, and non-hirsute BREAST: soft, non-tender, symmetric, no dominant mass, normal nipple-areolar complex, no lymphadenopathy, and no nipple discharge ABDOMEN: soft, non-tender, and no masses PELVIC: external genitalia normal, normal Bartholin's glands, urethra, [place]'s glands, no vulvar lesions, no cervical lesions, good vaginal support, physiologic discharge present, normal appearing perineal body and perianal region BIMANUAL: uterus normal size, shape and consistency, no adnexal masses, and non-tender RECTOVAGINAL: deferred. NEURO: alert and oriented x3,exam grossly non-focal EXTREMITIES: normal ASSESSMENT/PLAN: 1) Health maintenance: Pap/HPV up to date. Mammogram ordered Mammogram up to date Nutrition, exercise and routine health maintenance exams reviewed. Colon cancer screening: up to date with screening 2) Follow up one year or sooner as needed 3) protein and nutrition reviewed MD Edgar Barker Deidre, MD 07/17/2024 11:40 AM Addendum Why Is Protein So Important for Weight loss? consuming more protein not only reduces body weight but enhances body composition by decreasing fat mass while preserving fat-free mass During weight loss phase protein consumption (with normal kidney function) should be 1-1.6g protein per Kilogram of body weight (1kg=2.2lbs) On average Women need to Aim for a minimum 90g protein per day Consuming higher protein can also prevent weight regain after weight loss Protein consumption increases hormones responsible for satiety (feeling full)- these include Gut hormones like Glucagon-like peptide-1 (GLP-1), Cholecystokinin (CCK), Peptide Tyrosine-Tyrosine (PYY) and decreasing the Gut hormone responsible for causing hunger Ghrelin Protein has an increased thermogenesis effect of food- which means it take more calories to break down protein when consumed compared to carbohydrates or fats Protein also prevents a losing lean mass during weight loss (lose more fat and preserve fat free mass) which helps to increase restin (more content not included)... Normal [facility] Breast - bilateral bin wise 07-17-2024 IMPRESSION: There is no mammographic evidence of malignancy in either breast. Routine screening mammogram is recommended. Annual mammogram will be due in 1 year. BI-RADS Category 1: Negative RISK: Based on the Tyrer-Cuzick (TC) risk assessment model, this patient has a 6.5% lifetime risk of developing breast cancer, meaning they are at average risk for developing breast cancer. However, this is only an estimate based on available history provided on the patient's questionnaire. We encourage all patients to talk with their providers about these results, further recommendations for managing breast health, and appropriate supplemental screening options if the patient has dense breast tissue. Interpreting Radiologist: Hoang Neri M.D. Electronically signed on: 07/17/2024 Squeegee Operator: CHERRY Transcridarlene Date/Time: Jul 17 2024 10:52A Dictated by: HOANG NERI MD This examination was interpreted and the report reviewed and electronically signed by: HOANG NERI MD on Jul 17 2024 3:39PM [facility] DIVISION OF RADIOLOGY * * *Final Report* * * DATE OF EXAM: Jul 17 2024 11:03AM [facility] 0582 - [facility] SCREENING W EDVIN / PROCEDURE REASON: Encounter for screening mammogram for breast cancer * * * * Physician Interpretation * * * * RESULT: [place] [address] #[id number] - [facility] SCREENING W EDVIN HISTORY: 58 year-old patient seen for screening. Patient is asymptomatic in both breasts. Patient states no personal history of breast cancer. COMPARISON STUDIES: The present examination has been compared to prior imaging studies dated 06/28/2020 (mammogram), 06/30/2021 (mammogram), 07/13/2022 (mammogram) and 07/16/2023 (mammogram). MAMMOGRAM TECHNIQUE: The study was acquired using full field digital technology and interpreted from soft copy. Digital Breast Tomosynthesis (DBT) images were obtained and used to assist in the interpretation of this examination. MAMMOGRAM FINDINGS: There are scattered areas of fibroglandular density. No suspicious masses, calcifications or other abnormalities are seen in either breast. There are no significant interval changes. DIVISION OF RADIOLOGY Provider, [facility] - 07/17/2024 * * *Final Report* * * DATE OF EXAM: Jul 17 2024 11:03AM [facility] 0582 - [facility] SCREENING W EDVIN / PROCEDURE REASON: Encounter for screening mammogram for breast cancer * * * * Physician Interpretation * * * * RESULT: [place] [address] [place] [address] #[id number] - [facility] SCREENING W EDVIN HISTORY: 58 year-old patient seen for screening. Patient is asymptomatic in both breasts. Patient states no personal history of breast cancer. COMPARISON STUDIES: The present examination has been compared to prior imaging studies dated 06/28/2020 (mammogram), 06/30/2021 (mammogram), 07/13/2022 (mammogram) and 07/16/2023 (mammogram). MAMMOGRAM TECHNIQUE: The study was acquired using full field digital technology and interpreted from soft copy. Digital Breast Tomosynthesis (DBT) images were obtained and used to assist in the interpretation of this examination. MAMMOGRAM FINDINGS: There are scattered areas of fibroglandular density. No suspicious masses, calcifications or other abnormalities are seen in either breast. There are no significant interval changes. IMPRESSION IMPRESSION: There is no mammographic evidence of malignancy in either breast. Routine screening mammogram is recommended. Annual mammogram will be due in 1 year. BI-RADS Category 1: Negative RISK: Based on the Tyrer-Cuzick (TC) risk assessment model, this patient has a 6.5% lifetime risk of developing breast cancer, meaning they are at average risk for developing breast cancer. However, this is only an estimate based on available history provided on the patient's questionnaire. We encourage all patients to talk with their providers about these results, further recommendations for managing breast health, and appropriate supplemental screening options if the patient has dense breast tissue. Interpreting Radiologist: Hoang Neri M.D. Electronically signed on: 07/17/2024 Squeegee Operator: CHERRY Transcribe Date/Time: Jul 17 2024 10:52A Dictated by: HOANG NERI MD This examination was interpreted and the report reviewed and electronically signed by: HOANG NERI MD on Jul 17 2024 3:39PM EST [facility] Radiology Study observation (narrative) Dana duncan [facility] DBT Breast - bilateral scree ningOrdered By: [facility] Provider on 07-17-2024 [facility] SCREENING W TOMOon 07-17 [facility]CREENING W EDVIN * * *Final Report* * * DATE OF EXAM: Jul 17 2024 11:03AM [facility] 0582 - [facility] SCREENING W EDVIN / PROCEDURE REASON: Encounter for screening mammogram for breast cancer * * * * Physician Interpretation * * * * RESULT: [place] [address] [place] [address] #[id number] - [facility] SCREENING W EDVIN HISTORY: 58 year-old patient seen for screening. Patient is asymptomatic in both breasts. Patient states no personal history of breast cancer. COMPARISON STUDIES: The present examination has been compared to prior imaging studies dated 06/28/2020 (mammogram), 06/30/2021 (mammogram), 07/13/2022 (mammogram) and 07/16/2023 (mammogram). MAMMOGRAM TECHNIQUE: The study was acquired using full field digital technology and interpreted from soft copy. Digital Breast Tomosynthesis (DBT) images were obtained and used to assist in the interpretation of this examination. MAMMOGRAM FINDINGS: There are scattered areas of fibroglandular density. No suspicious masses, calcifications or other abnormalities are seen in either breast. There are no significant interval changes. IMPRESSION: There is no mammographic evidence of malignancy in either breast. Routine screening mammogram is recommended. Annual mammogram will be due in 1 year. BI-RADS Category 1: Negative RISK: Based on the Tyrer-Cuzick (TC) risk assessment model, this patient has a 6.5% lifetime risk of developing breast cancer, meaning they are at average risk for developing breast cancer. However, this is only an estimate based on available history provided on the patient's questionnaire. We encourage all patients to talk with their providers about these results, further recommendations for managing breast health, and appropriate supplemental screening options if the patient has dense breast tissue. Interpreting Radiologist: Hoang Neri M.D. Electronically signed on: 07/17/2024 Squeegee Operator: CHERRY Transcribe Date/Time: Jul 17 2024 10:52A Dictated by: HOANG NERI MD This examination was interpreted and the report reviewed and electronically signed by: HOANG NERI MD on Jul 17 2024 3:39PM EST [id number] CN Normal [facility] AST(SGOT)on 06-23-2024 AST [Catalytic activity/Vol] 25 U/L Normal <=31 [facility] Comment on above: Order Comment: Order Date: 06/23/24 Order Info: 1919-11 - AST Order Info: 1741-09 - ALT Performed By: #### L 501.4405, L501.4100 #### [facility] [address], [place], [id number] Alanine Aminotransferas (SGP T)on 06-23-2024 ALT [Catalytic activity/Vol] 32 U/L Normal <=34 [facility] Comment on above: Order Comment: Order Date: 06/23/24 Order Info: 1919-11 - AST Order Info: 1741-09 - ALT Performed By: #### L 501.4405, L501.4100 #### [facility] [address] [place], [place], [address] Laboratory - Chemistry and C hemistry - challengeOrdered By: Landy Jenkins on 06-23-2024 AST [Catalytic activity/Vol] 25 U/L <32 [facility] Serum or plasma alanine salgado otransferase (ALT) measurementOrdered By: Landy Jenkins on 06-23-2024 ALT [Catalytic activity/Vol] 32 U/L <35 [facility] CBC-Complete Blood Cnt No Di ffon 01-26-2024 Erythrocyte distribution width (RBC) [Ratio] 14.5 % Normal 11.6-14.6 [facility] Comment on above: Order Comment: Order Date: 10/20/23 Order Info: [id number] - CBC Performed By: #### L 500.4050, L100.0500, L501.9520 #### [facility] [address] [place], [address] Hematocrit (Bld) [Volume fraction] 37.9 % Normal 37-47 [facility] Comment on above: Order Comment: Order Date: 10/20/23 Order Info: [id number] - CBC Performed By: #### L 500.4050, L100.0500, L501.9520 #### [facility] [address] [place], [address] Hemoglobin (Bld) [Mass/Vol] 12.2 g/dL Normal 12.0-15.0 [facility] Comment on above: Order Comment: Order Date: 10/20/23 Order Info: [id number] - CBC Performed By: #### L 500.4050, L100.0500, [id number] #### [facility] [address] [place], [address] MCH (RBC) [Entitic mass] 26.9 pg Low 27.0-32.0 [facility] Comment on above: Order Comment: Order Date: 10/20/23 Order Info: [id number] - CBC Performed By: #### L 500.4050, L100.0500, L501.9520 #### [facility] [address] [place], [address] MCHC (RBC) [Mass/Vol] 32.2 g/dL Normal 32-36 [facility] Comment on above: Order Comment: Order Date: 10/20/23 Order Info: [id number] - CBC Performed By: #### L 500.4050, L100.0500, [id number] #### [facility] [address] [place], [address] MCV (RBC) [Entitic vol] 83.5 fL Normal 81-99 [facility] Comment on above: Order Comment: Order Date: 10/20/23 Order Info: [id number] - CBC Performed By: #### L 500.4050, L100.0500, [id number] #### [facility] [address] [place], [address] Platelet mean volume (Bld) [Entitic vol] 10.3 fL Normal 6.2-12.0 [facility] Comment on above: Order Comment: Order Date: 10/20/23 Order Info: [id number] - CBC Performed By: #### L 500.4050, L100.0500, [id number] #### [facility] [address] [place], [address] Platelets (Bld) [#/Vol] 230 10*3/uL Normal 150-450 [facility] Comment on above: Order Comment: Order Date: 10/20/23 Order Info: [id number] - CBC Performed By: #### L 500.4050, L100.0500, [id number] #### [facility] [address] [place], [address] RBC (Bld) [#/Vol] 4.54 10*6/uL Normal 4.2-5.4 [facility] Comment on above: Order Comment: Order Date: 10/20/23 Order Info: [id number] - CBC Performed By: #### L 500.4050, L100.0500, [id number] #### [facility] [address] [place], [address] RDW SD 44.0 fl High 35.1-43.9 [facility] Comment on above: Order Comment: Order Date: 10/20/23 Order Info: [id number] - CBC Performed By: #### L 500.4050, L100.0500, [id number] #### [facility] [address] [place], [address] WBC (Bld) [#/Vol] 5.3 10*3/uL Normal 4.4-11.0 [facility] Comment on above: Order Comment: Order Date: 10/20/23 Order Info: 11682-3 - CBC Performed By: #### L 500.4050, L100.0500, [id number] #### [facility] [address] [place], [address] Comprehensive Metabolic Prof ilon 01-26-2024 Albumin [Mass/Vol] 3.4 g/dL Normal 3.2-5.0 [facility] Comment on above: Order Comment: Order Date: 10/20/23 Order Info: 0786-1 - CMP Order Info: 3016-3 - TSH Performed By: #### L 500.4050, L100.0500, [id number] #### [facility] [address] [place], [address] Albumin/Globulin [Mass ratio] 0.8 {ratio} Low 0.9-2.4 [facility] Comment on above: Order Comment: Order Date: 10/20/23 Order Info: 0786-1 - CMP Order Info: 301-3 - TSH Performed By: #### L 500.4050, L100.0500, [id number] #### [facility] [address] [place], [address] ALK P 123 U/L High 45-117 [facility] Comment on above: Order Comment: Order Date: 10/20/23 Order Info: 0786-1 - CMP Order Info: 301-3 - TSH Performed By: #### L 500.4050, L100.0500, [id number] #### [facility] [address] [place], [address] ALT [Catalytic activity/Vol] 47 U/L Normal 13-56 [facility] Comment on above: Order Comment: Order Date: 10/20/23 Order Info: 0786-1 - CMP Order Info: 3016-3 - TSH Performed By: #### L 500.4050, L100.0500, [id number] #### [facility] [address] [place], [address] AST [Catalytic activity/Vol] 29 U/L Normal 15-37 [facility] Comment on above: Order Comment: Order Date: 10/20/23 Order Info: 0786 - CMP Order Info: [id number] - TSH Performed By: #### L 500.4050, L100.0500, [id number] #### [facility] [address] [place], [address] Bilirubin [Mass/Vol] 0.40 mg/dL Normal 0.20-1.00 [facility] Comment on above: Order Comment: Order Date: 10/20/23 Order Info: [id number] - CMP Order Info: 3 - TSH Result Comment: For patients on eltrombopag therapy, use of Dimension [place] TBIL is not recommended. Performed By: #### L 500.4050, L100.0500, L501.9520 #### [facility] [address] [place], [address] BUN/CRE 26.0 RATIO High 10-20 [facility] Comment on above: Order Comment: Order Date: 10/20/23 Order Info: 07 - CMP Order Info: [id number] - TSH Performed By: #### L 500.4050, L100.0500, [id number] #### [facility] [address] [place], [address] CA,Total 9.1 mg/dL Normal 8.5-10.1 [facility] Comment on above: Order Comment: Order Date: 10/20/23 Order Info: 0786 - CMP Order Info: 3016 - TSH Performed By: #### L 500.4050, L100.0500, [id number] #### [facility] [address] [place], [address] Chloride [Moles/Vol] 110 mmol/L High 98-107 [facility] Comment on above: Order Comment: Order Date: 10/20/23 Order Info: 0786-1 - CMP Order Info: [id number] - TSH Performed By: #### L 500.4050, L100.0500, [id number] #### [facility] [address] [place], [address] CO2 [Moles/Vol] 25.0 mmol/L Normal 21.0-32.0 [facility] Comment on above: Order Comment: Order Date: 10/20/23 Order Info: 0786 - CMP Order Info: 3015-06 - TSH Performed By: #### L 500.4050, L100.0500, [id number] #### [facility] [address] [place], [address] Creatinine [Mass/Vol] 0.65 mg/dL Normal 0.55-1.02 [facility] Comment on above: Order Comment: Order Date: 10/20/23 Order Info: 07 - CMP Order Info: [id number] - TSH Result Comment: The validity of the calculated GFR GFRAA in patients over 70 years has not been determined. Clinical correlation is essential. Performed By: #### L 500.4050, L100.0500, L501.9520 #### [facility] [address] [place], [address] EST GFR - AA 121 mL/min Normal >60 [facility] Comment on above: Order Comment: Order Date: 10/20/23 Order Info: 0786- - CMP Order Info: [id number] - TSH Result Comment: Afri can [place] GFR Calc Performed By: #### L 500.4050, L100.0500, [id number] #### [facility] [address] [place], [address] GAP 5 Normal 5-15 [facility] Comment on above: Order Comment: Order Date: 10/20/23 Order Info: 0786-1 - CMP Order Info: [id number] - TSH Performed By: #### L 500.4050, L100.0500, [id number] #### [facility] [address] [place], [address] GFR/1.73 sq M.predicted among non-blacks MDRD (S/P/Bld) [Vol rate/Area] 100 mL/min/{1.73_m2} Normal >60 [facility] Comment on above: Order Comment: Order Date: 10/20/23 Order Info: 0786-1 - CMP Order Info: 3016-3 - TSH Result Comment: Non- GFR Calc Performed By: #### L 500.4050, L100.0500, [id number] #### [facility] [address] [place], [address] Globulin (S) [Mass/Vol] 4.1 g/dL Normal 2.2-4.2 [facility] Comment on above: Order Comment: Order Date: 10/20/23 Order Info: 0786-1 - CMP Order Info: 3016-3 - TSH Performed By: #### L 500.4050, L100.0500, [id number] #### [facility] [address] [place], [address] Glucose [Mass/Vol] 105 mg/dL Normal 74-106 [facility] Comment on above: Order Comment: Order Date: 10/20/23 Order Info: 0786-1 - CMP Order Info: 3016-3 - TSH Result Comment: Fast ing Glucose result from 100 to 125 mg/dL suggests IMPAIRED HOMEOSTASIS per A.D.A. criteria. Performed By: #### L 500.4050, L100.0500, L501.9520 #### [facility] [address] [place], [address] Potassium [Moles/Vol] 4.1 mmol/L Normal 3.5-5.1 [facility] Comment on above: Order Comment: Order Date: 10/20/23 Order Info: 0786-1 - CMP Order Info: 3015-3 - TSH Performed By: #### L 500.4050, L100.0500, L501.9520 #### [facility] [address] [place], [address] Sodium [Moles/Vol] 140 mmol/L Normal 136-145 [facility] Comment on above: Order Comment: Order Date: 10/20/23 Order Info: [id number] - CMP Order Info: 3015-3 - TSH Performed By: #### L 500.4050, L100.0500, L501.9520 #### [facility] [address] [place], [address] T PROT 7.5 g/dL Normal 6.4-8.2 [facility] Comment on above: Order Comment: Order Date: 10/20/23 Order Info: 0786- - CMP Order Info: 3 - TSH Performed By: #### L 500.4050, L100.0500, L501.9520 #### [facility] [address] [place], [address] Urea nitrogen [Mass/Vol] 17 mg/dL Normal 7-18 [facility] Comment on above: Order Comment: Order Date: 10/20/23 Order Info: [id number] - CMP Order Info: 3 - TSH Performed By: #### L 500.4050, L100.0500, L501.9520 #### [facility] [address] [place], [address] Thyroid Stim Hormone (TSH)on 01-26-2024 TSH 2.420 uIU/mL Normal 0.358-3.740 [facility] Comment on above: Order Comment: Order Date: 10/20/23 Order Info: [id number] - CMP Order Info: 6-3 - TSH Performed By: #### L 500.4050, L100.0500, L501.9520 #### [facility] [address] [place], [address] CBC W/Diff, Automatedon 07-0 9-4 Absolute Lymph 1.75 X10 3/uL Normal 0.83-4.51 [facility] Comment on above: Performed By: #### L 501.9520, L500.4050, L100.0100, L500.4100 #### [facility] [address] [place], [address] Absolute Neut 3.8 X10 3/uL Normal 2.0-7.7 [facility] Comment on above: Performed By: #### L 501.9520, L500.4050, L100.0100, L500.4100 #### [facility] [address] [place], [address] Basophils/100 WBC (Bld) 0.6 % Normal 0-1 [facility] Comment on above: Performed By: #### L 501.9520, L500.4050, L100.0100, L500.4100 #### [facility] [address] [place], [address] Eosinophils/100 WBC (Bld) 1.1 % Normal 0-5 [facility] Comment on above: Performed By: #### L 501.9520, L500.4050, L100.0100, L500.4100 #### [facility] [address] [place], [address] Erythrocyte distribution width (RBC) [Ratio] 14.8 % High 11.6-14.6 [facility] Comment on above: Performed By: #### L 501.9520, L500.4050, L100.0100, L500.4100 #### [facility] [address] [place], [address] Hematocrit (Bld) [Volume fraction] 38.6 % Normal 37-47 [facility] Comment on above: Performed By: #### L 501.9520, L500.4050, L100.0100, L500.4100 #### [facility] [address] [place], [address] Hemoglobin (Bld) [Mass/Vol] 12.2 g/dL Normal 12.0-15.0 [facility] Comment on above: Performed By: #### L 501.9520, L500.4050, L100.0100, L500.4100 #### [facility] [address] [place], [address] IG% 0.500 Normal 0.0-0.9 [facility] Comment on above: Result Comment: IG% - Immature Granulocytes (promyelocytes, myelocytes and metamyelocytes) > 1% indicates that a LEFT SHIFT is Present. Performed By: #### L 501.9520, L500.4050, L100.0100, L500.4100 #### [facility] [address] [place], [address] Lymphocytes/100 WBC (Bld) 27.3 % Normal 19-41 [facility] Comment on above: Performed By: #### L 501.9520, L500.4050, L100.0100, L500.4100 #### [facility] [address] [place], [address] MCH (RBC) [Entitic mass] 26.0 pg Low 27.0-32.0 [facility] Comment on above: Performed By: #### L 501.9520, L500.4050, L100.0100, L500.4100 #### [facility] [address] [place], [address] MCHC (RBC) [Mass/Vol] 31.6 g/dL Low 32-36 [facility] Comment on above: Performed By: #### L 501.9520, L500.4050, L100.0100, L500.4100 #### [facility] [address] [place], [address] MCV (RBC) [Entitic vol] 82.3 fL Normal 81-99 [facility] Comment on above: Performed By: #### L 501.9520, L500.4050, L100.0100, L500.4100 #### [facility] [address] [place], [address] Monocytes/100 WBC (Bld) 10.9 % High 0-10 [facility] Comment on above: Performed By: #### L 501.9520, L500.4050, L100.0100, L500.4100 #### [facility] [address] [place], [address] Neutrophils/100 WBC (Bld) 59.6 % Normal 47-70 [facility] Comment on above: Performed By: #### L 501.9520, L500.4050, L100.0100, L500.4100 #### [facility] [address] [place], [address] Nucleated RBC (Bld) [#/Vol] 0 10*3/uL Normal 0-5 [facility] Comment on above: Performed By: #### L 501.9520, L500.4050, L100.0100, L500.4100 #### [facility] [address] [place], [address] Platelet mean volume (Bld) [Entitic vol] 10.8 fL Normal 6.2-12.0 [facility] Comment on above: Performed By: #### L 501.9520, L500.4050, L100.0100, L500.4100 #### [facility] [address] [place], [address] Platelets (Bld) [#/Vol] 230 10*3/uL Normal 150-450 [facility] Comment on above: Performed By: #### L 501.9520, L500.4050, L100.0100, L500.4100 #### [facility] [address] [place], [address] RBC (Bld) [#/Vol] 4.69 10*6/uL Normal 4.2-5.4 [facility] Comment on above: Performed By: #### L 501.9520, L500.4050, L100.0100, L500.4100 #### [facility] [address] [place], [address] RDW SD 43.8 fl Normal 35.1-43.9 [facility] Comment on above: Performed By: #### L 501.9520, L500.4050, L100.0100, L500.4100 #### [facility] [address] [place], [address] WBC (Bld) [#/Vol] 6.4 10*3/uL Normal 4.4-11.0 [facility] Comment on above: Performed By: #### L 501.9520, L500.4050, L100.0100, L500.4100 #### [facility] [address] [place], [address] Comprehensive Metabolic Prof [facility] 10-12-2023 Albumin [Mass/Vol] 3.5 g/dL Normal 3.2-5.0 [facility] Comment on above: Performed By: #### L 501.9520, L500.4050, L100.0100, L500.4100 #### [facility] [address] [place], [address] Albumin/Globulin [Mass ratio] 0.9 {ratio} Normal 0.9-2.4 [facility] Comment on above: Performed By: #### L 501.9520, L500.4050, L100.0100, L500.4100 #### [facility] [address] [place], [address] ALK P 112 U/L Normal 45-117 [facility] Comment on above: Performed By: #### L 501.9520, L500.4050, L100.0100, L500.4100 #### [facility] [address] [place], [address] ALT [Catalytic activity/Vol] 72 U/L High 13-56 [facility] Comment on above: Performed By: #### L 501.9520, L500.4050, L100.0100, L500.4100 #### [facility] [address] [place], [address] AST [Catalytic activity/Vol] 48 U/L High 15-37 [facility] Comment on above: Performed By: #### L 501.9520, L500.4050, L100.0100, L500.4100 #### [facility] [address] [place], [address] Bilirubin [Mass/Vol] 0.60 mg/dL Normal 0.20-1.00 [facility] Comment on above: Result Comment: For patients on eltrombopag therapy, use of Dimension [place] TBIL is not recommended. Performed By: #### L 501.9520, L500.4050, L100.0100, L500.4100 #### [facility] [address] [place], [address] BUN/CRE 25.8 RATIO High 10-20 [facility] Comment on above: Performed By: #### L 501.9520, L500.4050, L100.0100, L500.4100 #### [facility] [address] [place], [address] CA,Total 9.2 mg/dL Normal 8.5-10.1 [facility] Comment on above: Performed By: #### L 501.9520, L500.4050, L100.0100, L500.4100 #### [facility] [address] [place], [address] Chloride [Moles/Vol] 107 mmol/L Normal 98-107 [facility] Comment on above: Performed By: #### L 501.9520, L500.4050, L100.0100, L500.4100 #### [facility] [address] [place], [address] CO2 [Moles/Vol] 27.0 mmol/L Normal 21.0-32.0 [facility] Comment on above: Performed By: #### L 501.9520, L500.4050, L100.0100, L500.4100 #### [facility] [address] [place], [address] Creatinine [Mass/Vol] 0.66 mg/dL Normal 0.55-1.02 [facility] Comment on above: Result Comment: The validity of the calculated GFR GFRAA in patients over 70 years has not been determined. Clinical correlation is essential. Performed By: #### L 501.9520, L500.4050, L100.0100, L500.4100 #### [facility] [address] [place], [address] EST GFR - AA 119 mL/min Normal >60 [facility] Comment on above: Result Comment: Afri can [place]ran GFR Calc Performed By: #### L 501.9520, L500.4050, L100.0100, L500.4100 #### [facility] [address] [place], [address] GAP 4 Low 5-15 [facility] Comment on above: Performed By: #### L 501.9520, L500.4050, L100.0100, L500.4100 #### [facility] [address] [place], [address] GFR/1.73 sq M.predicted among non-blacks MDRD (S/P/Bld) [Vol rate/Area] 99 mL/min/{1.73_m2} Normal >60 [facility] Comment on above: Result Comment: Non- GFR Calc Performed By: #### L 501.9520, L500.4050, L100.0100, L500.4100 #### [facility] [address] [place], [address] Globulin (S) [Mass/Vol] 4.1 g/dL Normal 2.2-4.2 [facility] Comment on above: Performed By: #### L 501.9520, L500.4050, L100.0100, L500.4100 #### [facility] [address] [place], [address] Glucose [Mass/Vol] 99 mg/dL Normal 74-106 [facility] Comment on above: Performed By: #### L 501.9520, L500.4050, L100.0100, L500.4100 #### [facility] [address] [place], [address] Potassium [Moles/Vol] 4.3 mmol/L Normal 3.5-5.1 [facility] Comment on above: Performed By: #### L 501.9520, L500.4050, L100.0100, L500.4100 #### [facility] [address] [place], [address] Sodium [Moles/Vol] 138 mmol/L Normal 136-145 [facility] Comment on above: Performed By: #### L 501.9520, L500.4050, L100.0100, L500.4100 #### [facility] [address] [place], [address] T PROT 7.6 g/dL Normal 6.4-8.2 [facility] Comment on above: Performed By: #### L 501.9520, L500.4050, L100.0100, L500.4100 #### [facility] [address] [place], [address] Urea nitrogen [Mass/Vol] 17 mg/dL Normal 7-18 [facility] Comment on above: Performed By: #### L 501.9520, L500.4050, L100.0100, L500.4100 #### [facility] [address] [place], [address] Lipid Profileon 10-12-2023 Cholesterol [Mass/Vol] 177 mg/dL Normal 200 [facility] Comment on above: Result Comment: <200 mg/dL Desirable 200-240 mg/dL Borderline >240 mg/dL High Risk Performed By: #### L 501.9520, L500.4050, L100.0100, L500.4100 #### [facility] [address] [place], [address] Cholesterol in HDL [Mass/Vol] 66 mg/dL Normal [facility] Comment on above: Result Comment: The drugs N-Acetylcysteine and Metamizole may falsely depress this assay. Reference Range HDL <40 mg/dL Low HDL Cholesterol HDL >or= 60 mg/dL High HDL Cholesterol Performed By: #### L 501.9520, L500.4050, L100.0100, L500.4100 #### [facility] [address] [place], [address] Cholesterol in LDL [Mass/Vol] 93 mg/dL Normal 0-130 [facility] Comment on above: Performed By: #### L 501.9520, L500.4050, L100.0100, L500.4100 #### [facility] [address] [place], [address] Cholesterol in VLDL [Mass/Vol] 18 mg/dL Normal 5-40 [facility] Comment on above: Performed By: #### L 501.9520, L500.4050, L100.0100, L500.4100 #### [facility] [address] [place], [address] Triglyceride [Mass/Vol] 89 mg/dL Normal [facility] Comment on above: Result Comment: The drugs N-Acetylcysteine and Metamizole may falsely depress this assay. Serum Triglycerides Reference Interval Normal <150 mg/dL Borderline high 150 - 199 mg/dL High 200 - 499 mg/dL Very High > or = 500 mg/dL Performed By: #### L 501.9520, L500.4050, L100.0100, L500.4100 #### [facility] [address] [place], [address] Thyroid Stim Hormone (TSH)on 10-12-2023 TSH 2.64 uIU/mL Normal 0.358-3.74 [facility] Comment on above: Performed By: #### L 501.9520, L500.4050, L100.0100, L500.4100 #### [facility] [address] [place], [address] CNCOon 07-19-2023 [facility] HNO ID: [id number] Author: COORDINATOR, MAMMOGRAPHY, ? Service: ? Author Type: Physician Type: Letter Filed: 07/19/2023 10:26 Note Text: July 19, 2023 PID: [id number] Ashley Zamarripa [address] [place] [address] Dear Ms. Zamarripa, We are pleased to inform you that the results of your recent breast imaging exam on 07/16/2023 are normal. Early detection of cancer is very important. We also understand recommendations regarding breast cancer screening are controversial. Please discuss with your primary care provider which strategy is best for you and whether a mammogram is right for you. Your imaging studies and report will be kept on file at [facility] as part of your permanent medical record and are available for your continuing care. Thank you for allowing us to help in meeting your health care needs. Sincerely, Dr. Brower Interpreting Radiologist [facility] (Normal over 40) Normal [facility] Absolute lymphocyte countOrd ered By: Lennie Gee on 10-08-2022 Lymphocytes Auto (Unsp spec) [#/Vol] 2.28 10*3/uL 0.83-4.51 [facility] Basophil percentageOrdered B y: Lennei Gee on 10-08-2022 Basophils/100 WBC (Bld) 1.0 % 0-1 [facility] Bilirubin [Mass/Vol] 0.50 mg/dL 0.20-1.00 [facility] Comment on above: For patients on eltr ombopag therapy, use of Dimension [place] TBIL is not recommended. Chloride [Moles/Vol] 106 mmol/L 98-107 [facility] Cholesterol [Mass/Vol] 185 mg/dL <200 [facility] Comment on above: <200 mg/dL Desirable 200-240 mg/dL Borderline >240 mg/dL High Risk Eosinophils/100 WBC (Bld) 1.7 % 0-5 [facility] Glucose [Mass/Vol] 93 mg/dL 74-106 [facility] Neutrophils (Bld) [#/Vol] 3.0 10*3/uL 2.0-7.7 [facility] Neutrophils/100 WBC (Bld) 49.4 % 47-70 [facility] Potassium [Moles/Vol] 4.0 mmol/L 3.5-5.1 [facility] Protein [Mass/Vol] 7.5 g/dL 6.4-8.2 [facility] Sodium [Moles/Vol] 138 mmol/L 136-145 [facility] Triglyceride [Mass/Vol] 62 mg/dL <199 [facility] Comment on above: The drugs N-Acetylcy steine and Metamizole may falsely depress this assay.Serum Triglycerides Reference Interval Normal <150 mg/dL Borderline high 150 - 199 mg/dL High 200 - 499 mg/dL Very High > or = 500 mg/dL WBC (Bld) [#/Vol] 6.0 10*3/uL 4.4-11.0 [facility] Blood erythrocytes count (nu mber/volume)Ordered By: Lennie Gee on 10-08-2022 RBC (Bld) [#/Vol] 4.78 10*6/uL 4.2-5.4 [facility] Blood hemoglobin measurement (mass/volume)Ordered By: Lennie Gee on 10-08-2022 Hemoglobin (Bld) [Mass/Vol] 12.9 g/dL 12.0-15.0 [facility] Blood lymphocytes/100 leukoc ytesOrdered By: Lennie Gee on 10-08-2022 Lymphocytes/100 WBC (Bld) 37.9 % 19-41 [facility] Blood monocytes/100 leukocyt esOrdered By: Lennie Gee on 10-08-2022 Monocytes/100 WBC (Bld) 9.7 % 0-10 [facility] Blood platelet mean volumeOr dered By: Lennie Gee on 10-08-2022 Platelet mean volume (Bld) [Entitic vol] 10.4 fL 6.2-12.0 [facility] Determination of erythrocyte mean corpuscular volume (MCV)Ordered By: Lennie Gee on 10-08-2022 MCV (RBC) [Entitic vol] 82.6 fL 81-99 [facility] Hematocrit Auto (Bld) [Volum e fraction]Ordered By: Lennie Gee on 10-08-2022 Hematocrit (Bld) [Volume fraction] 39.5 % 37-47 [facility] - Chemistry and C hemistry - challengeOrdered By: Lennie Gee on 10-08-2022 ALP [Catalytic activity/Vol] 108 U/L 45-117 [facility] ALT [Catalytic activity/Vol] 33 U/L 13-56 [facility] CO2 [Moles/Vol] 27.0 mmol/L 21.0-32.0 [facility] Globulin (S) [Mass/Vol] 4.1 g/dL 2.2-4.2 [facility] Urea nitrogen/Creatinine [Mass ratio] 23.4 mg/mg 10-20 [facility] - Hematology and Cell countsOrdered By: Lennie Gee on 10-08-2022 Erythrocyte distribution width (RBC) [Entitic vol] 43.0 fL 35.1-43.9 [facility] Erythrocyte distribution width (RBC) [Ratio] 14.5 % 11.6-14.6 [facility] Immature granulocytes/100 WBC (Bld) 0.300 % 0.0-0.9 [facility] Comment on above: IG% - Immature Granu locytes (promyelocytes, myelocytes and metamyelocytes) > 1% indicates that a LEFT SHIFT is Present. MCH (RBC) [Entitic mass] 27.0 pg 27.0-32.0 [facility] Nucleated RBC/100 WBC (Bld) [Ratio] 0 % 0-5 [facility] MCHC Auto (RBC) [Mass/Vol]Or dered By: Lennie Gee on 10-08-2022 MCHC (RBC) [Mass/Vol] 32.7 g/dL 32-36 [facility] No Panel InformationOrdered By: Lennie Gee on 10-08-2022 Estimated GFR (MDRD) Amer 115 mL/min >60 [facility] Comment on above: GFR Calc Estimated GFR (MDRD) Non-Af Amer 95 mL/min >60 [facility] Comment on above: Non- GFR Calc Thyroid Stimulating Hormone (TSH) 2.56 uIU/mL 0.358-3.74 [facility] Platelets bldOrdered By: Raudel Gee on 10-08-2022 Platelets (Bld) [#/Vol] 234 10*3/uL 150-450 [facility] Serum or plasma albumin deepika urement (mass/volume)Ordered By: Lennie Gee on 10-08-2022 Albumin [Mass/Vol] 3.4 g/dL 3.2-5.0 [facility] Serum or plasma albumin/glob ulin mass ratioOrdered By: Lennie Gee on 10-08-2022 Albumin/Globulin [Mass ratio] 0.8 {ratio} 0.9-2.4 [facility] Serum or plasma calcium deepika urement (mass/volume)Ordered By: Lennie Gee on 10-08-2022 Calcium [Mass/Vol] 8.8 mg/dL 8.5-10.1 [facility] Serum or plasma cholesterol in HDL measurement (mass/volume)Ordered By: Lennie Gee on 10-08-2022 Cholesterol in HDL [Mass/Vol] 69 mg/dL >40 [facility] Comment on above: The drugs N-Acetylcy steine and Metamizole may falsely depress this assay. Reference Range HDL <40 mg/dL Low HDL Cholesterol HDL >or= 60 mg/dL High HDL Cholesterol Serum or plasma cholesterol in VLDL measurement (mass/volume)Ordered By: Lennie Gee on 10-08-2022 Cholesterol in VLDL [Mass/Vol] 12 mg/dL 5-40 [facility] Serum or plasma creatinine m easurement (mass/volume)Ordered By: Lennie Gee on 10-08-2022 Creatinine [Mass/Vol] 0.68 mg/dL 0.55-1.02 [facility] Comment on above: The validity of the calculated GFR & GFRAA in patients over 70 years has not been determined. Clinical correlation is essential. Serum or plasma low density lipoprotein (LDL) cholesterol measurement (mass/volume)Ordered By: Lennie Gee on 10-08-2022 Cholesterol in LDL [Mass/Vol] 104 mg/dL 0-130 [facility] Serum or plasma urea nitroge n measurement (mass/volume)Ordered By: Lennie Gee on 10-08-2022 Urea nitrogen [Mass/Vol] 16 mg/dL 7-18 [facility] Thin prep Papanicolaou smear with manual screeningOrdered By: Lennie Gee on 10-08-2022 Thin prep Papanicolaou smear with manual screening 19 U/L 15-37 [facility] Thin prep Papanicolaou smear with manual screening 5 5-15 [facility] IDALMIS SCREENING W TOMOon 07-13 [facility] Basophil percentageon 2021 Bilirubin [Mass/Vol] 0.40 mg/dL 0.20-1.00 [facility] Work Phone: Comment on above: For patients on eltr ombopag therapy, use of Dimension [place] TBIL is not recommended. Chloride [Moles/Vol] 108 mmol/L 98-107 [facility] Work Phone: Cholesterol [Mass/Vol] 163 mg/dL <200 [facility] Work Phone: Comment on above: <200 mg/dL Desirable 200-240 mg/dL Borderline >240 mg/dL High Risk Glucose [Mass/Vol] 91 mg/dL 74-106 [facility] Work Phone: Potassium [Moles/Vol] 4.1 mmol/L 3.5-5.1 [facility] Work Phone: Protein [Mass/Vol] 7.3 g/dL 6.4-8.2 [facility] Work Phone: Sodium [Moles/Vol] 141 mmol/L 136-145 [facility] Work Phone: Triglyceride [Mass/Vol] 48 mg/dL <199 [facility] Work Phone: Comment on above: The drugs N-Acetylcy steine and Metamizole may falsely depress this assay.Serum Triglycerides Reference Interval Normal <150 mg/dL Borderline high 150 - 199 mg/dL High 200 - 499 mg/dL Very High > or = 500 mg/dL Laboratory - Chemistry and C hemistry - challengeon 09-30-2021 ALP [Catalytic activity/Vol] 104 U/L 45-117 [facility] Work Phone: ALT [Catalytic activity/Vol] 35 U/L 13-56 [facility] Work Phone: CO2 [Moles/Vol] 27.0 mmol/L 21.0-32.0 [facility] Work Phone: Globulin (S) [Mass/Vol] 3.9 g/dL 2.2-4.2 [facility] Work Phone: Urea nitrogen/Creatinine [Mass ratio] 23.6 mg/mg 10-20 [facility] Work Phone: No Panel Informationon 09-30 Estimated GFR (MDRD) Amer 116 mL/min >60 [facility] Work Phone: Comment on above: GFR Calc Estimated GFR (MDRD) Non-Af Amer 96 mL/min >60 [facility] Work Phone: Comment on above: Non- GFR Calc Serum or plasma albumin deepika urement (mass/volume)on 09-30-2021 Albumin [Mass/Vol] 3.4 g/dL 3.2-5.0 [facility] Work Phone: Serum or plasma albumin/glob ulin mass ratioon 09-30-2021 Albumin/Globulin [Mass ratio] 0.9 {ratio} 0.9-2.4 [facility] Work Phone: Serum or plasma calcium deepika urement (mass/volume)on 09-30-2021 Calcium [Mass/Vol] 8.8 mg/dL 8.5-10.1 [facility] Work Phone: Serum or plasma cholesterol in HDL measurement (mass/volume)on 09-30-2021 Cholesterol in HDL [Mass/Vol] 65 mg/dL >40 [facility] Work Phone: Comment on above: The drugs N-Acetylcy steine and Metamizole may falsely depress this assay. Reference Range HDL <40 mg/dL Low HDL Cholesterol HDL >or= 60 mg/dL High HDL Cholesterol Serum or plasma cholesterol in VLDL measurement (mass/volume)on 09-30-2021 Cholesterol in VLDL [Mass/Vol] 10 mg/dL 5-40 [facility] Work Phone: Serum or plasma creatinine m easurement (mass/volume)on 09-30-2021 Creatinine [Mass/Vol] 0.68 mg/dL 0.55-1.02 [facility] Work Phone: Comment on above: The validity of the calculated GFR & GFRAA in patients over 70 years has not been determined. Clinical correlation is essential. Serum or plasma low density lipoprotein (LDL) cholesterol measurement (mass/volume)on 09-30-2021 Cholesterol in LDL [Mass/Vol] 88 mg/dL 0-130 [facility] Work Phone: Serum or plasma urea nitroge n measurement (mass/volume)on 09-30-2021 Urea nitrogen [Mass/Vol] 16 mg/dL 7-18 [facility] Work Phone: Thin prep Papanicolaou smear with manual screeningon 09-30-2021 Thin prep Papanicolaou smear with manual screening 23 U/L 15-37 [facility] Work Phone: Thin prep Papanicolaou smear with manual screening 6 5-15 [facility] Work Phone: IDALMIS SCREENING Vannessa Herzog 06-30 [facility] Vital Signs Date Time Vital Sign Value Performing Clinician Maddie daly 07-17-2024 11:16-0400 Body height 154.9 cm Joe Bolanos MD Work Phone: [facility] 07-17-2024 11:16-0400 Body mass index (BMI) [Ratio] 37.03 kg/m2 Joe Bolanos MD Work Phone: [facility] 07-17-2024 11:16-0400 Body weight 88.91 kg Joe Bolanos MD Work Phone: [facility] 07-17-2024 11:16-0400 Diastolic blood pressure 76 mm[Hg] Joe Bolanos MD Work Phone: [facility] 07-17-2024 11:16-0400 Systolic blood pressure 118 mm[Hg] Joe Bolanos MD Work Phone: [facility] 07-16-2023 08:57-0400 Body height 154.9 cm Joe Bolanos MD Work Phone: [facility] 07-16-2023 08:57-0400 Body weight 86.64 kg Joe Bolanos MD Work Phone: [facility] 07-16-2023 08:57-0400 Diastolic blood pressure 70 mm[Hg] Joe Bolanos MD Work Phone: [facility] 07-16-2023 08:57-0400 Systolic blood pressure 120 mm[Hg] Joe Bolanos MD Work Phone: [facility] 06-30-2021 09:10-0400 Body height 154.9 cm Joe Bolanos MD Work Phone: [facility] 06-30-2021 09:10-0400 Body weight 84.82 kg Joe Bolanos MD Work Phone: [facility] 06-30-2021 09:10-0400 Diastolic blood pressure 78 mm[Hg] Joe Bolanos MD Work Phone: [facility] 06-30-2021 09:10-0400 Systolic blood pressure 124 mm[Hg] Joe Bolanos MD Work Phone: [facility] Encounters Encounter Date Encounter Type Care Provider Facility Start: 07-17-2024 End: 09-16-2024 Follow-up encounter Joe Bolanos MD Work Phone: OB/Gynecology Start: 07-17-2024 End: 07-17-2024 Patient encounter procedure Joe Bolanos MD Work Phone: OB/Gynecology Comment on above: Encounter for gyneco logical examination (general) (routine) without abnormal findings (Primary Dx); Encounter for screening mammogram for breast cancer Start: 07-17-2024 End: 07-17-2024 Patient encounter status Joe Bolanos MD Work Phone: [facility] Start: 07-17-2024 End: 07-17-2024 ambulatory JOE BOLANOS Facility:[facility] Start: 07-17-2024 End: 07-17-2024 Subsequent hospital visit by physician Screen Mammo [facility] Comment on above: Encounter for screen ing mammogram for breast cancer [Z12.31] Start: 06-23-2024 End: 06-23-2024 ambulatory Landy Jenkins MD Work Phone: [facility] Work Phone: Start: 06-23-2024 End: 06-23-[address] Landy Jenkins MD -[facility] Start: 06-23-2024 End: 06-23-2024 ambulatory Landy Jenkins Facility:[facility] Start: 01-26-2024 End: 01-26-2024 ambulatory [facility] Facility:[facility] Start: 10-12-2023 End: 10-12-2023 ambulatory [facility] Facility:[facility] Start: 07-19-2023 Documentation procedure Mammog sarah Coordinator [facility] Start: 07-19-2023 Letter encounter Mammography Coordinator [facility] Department Start: 07-16-2023 End: 07-16-2023 Patient encounter procedure Joe Bolanos MD Work Phone: OB/Gynecology Comment on above: Encounter for gyneco logical examination (general) (routine) without abnormal findings (Primary Dx); Encounter for screening for human papillomavirus (HPV); Pap smear for cervical cancer screening; Encounter for screening mammogram for breast cancer Start: 07-16-2023 End: 07-16-2023 Patient encounter status Joe Bolanos MD Work Phone: [facility] Start: 07-16-2023 End: 07-16-2023 Subsequent hospital visit by physician Screen Mammo [facility] Comment on above: Encounter for screen ing mammogram for malignant neoplasm of breast [Z12.31] Start: 10-08-2022 End: 10-08-2022 ambulatory [facility] Work Phone: Start: 10-08-2022 End: 10-08-2022 Patient encounter procedure [facility] Start: 07-13-2022 Documentation procedure Mammog sarah Coordinator [facility] Start: 07-13-2022 Letter encounter Mammography Coordinator [facility] Department Start: 07-13-2022 End: 07-13-2022 Subsequent hospital visit by physician Screen Mammo [facility] Comment on above: Encounter for screen ing mammogram for malignant neoplasm of breast [Z12.31] Start: 09-30-2021 End: 09-30-2021 Patient encounter procedure [facility] Start: 06-30-2021 End: 06-30-2021 Patient encounter procedure Joe Bolanos MD Work Phone: OB/Gynecology Comment on above: Encounter for gyneco logical examination (general) (routine) without abnormal findings (Primary Dx); Encounter for screening mammogram for malignant neoplasm of breast Start: 06-30-2021 End: 06-30-2021 Patient encounter status Joe Bolanos MD Work Phone: OB/Gynecology Start: 06-30-2021 End: 06-30-2021 Patient encounter status [facility] Start: 06-30-2021 End: 06-30-2021 Subsequent hospital visit by physician Screen Mammo [facility] Comment on above: Encounter for gyneco logical examination (general) (routine) without abnormal findings [Z01.419] Start: 05-22-2021 Refill Raul mcqueen Work Phone: Podiatry Comment on above: Refill Request Procedures Date Procedure Procedure Detail Performing Clinician Start: 07-17-2024 Screening digital br east tomosynthesis bi Joe Bolanos MD Work Phone: Start: 07-13-2022 IDALMIS SCREENING W EDVIN Appiah MD Work Phone: Start: 07-13-2022 Mammography Mammograph y Coordinator Start: 06-30-2021 IDALMIS SCREENING W EDVIN Su Melchor MD Work Phone: Start: 06-30-2021 Mammography Joe Bolanos MD Work Phone: Start: 05-06-2020 Colonoscopy Joe Bolanos MD Work Phone: Plan of Treatment Date Care Activity Detail Author Start: 10-13-2032 Urine microalbumin profile DTaP,Tdap,Td Vaccine (2 - Td or Tdap) [facility] Start: 05-06-2030 Colonoscopy COLONOSCOPY [facility] Start: 05-06-2030 COLORECTAL CANCER SCREENING COLORECTAL CANCER SCREENING [facility] Start: 05-06-2030 Screening for malign ant neoplasm of colon [facility] Start: 07-15-2028 Screening for malign ant neoplasm of cervix Cervical Cancer Screening [facility] Start: 07-18-2025 End: 07-18-2025 Patient encounter procedure Mammogram Comment on above: Encounter for screen ing mammogram for breast cancer [Z12.31] Annual Start: 07-17-2025 Screening for malign ant neoplasm of breast Mammogram Screening [facility] Start: 12-04-2024 Influenza vaccination Influenz a Vaccine (Season Ended) [facility] Start: 07-15-2024 Screening for malign ant neoplasm of breast Mammogram Screening [facility] Start: 12-05-2023 Covid-19 Vaccine ( season) Covid-19 Vaccine () [facility] Start: 12-05-2023 Influenza vaccination C [facility] Start: 07-14-2023 Mammography [facility] Start: 07-14-2023 Screening for malign ant neoplasm of breast Mammogram Screening [facility] Start: 04-20-2023 HPV TESTING HPV TESTING [facility] Start: 04-20-2023 PAP TESTING PAP TESTING [facility] Start: 04-20-2023 Screening for malign ant neoplasm of cervix [facility] Start: 04-05-2023 Behavioral Health Screening Behavioral Health Screening [facility] Start: 12-04-2022 Covid-19 Vaccine ( season) Covid-19 Vaccine ( season) [facility] Start: 12-04-2022 Influenza vaccination C [facility] Start: 06-30-2022 Mammography MAMMOGRAM [facility] Start: 04-05-2022 DEPRESSION ASSESSMENT DEPRESSION ASS ESSMENT [facility] Start: 12-04-2021 Influenza vaccination INFLUENZA (Sea son Ended) [facility] Start: 12-04-2020 Influenza vaccination INFLUENZA (#1) [facility] Start: 11-02-2017 Pneumococcal Vaccine : 50+ (1 of 1 - PCV) Pneumococcal Vaccine: 50+ (1 of 1 - PCV) [facility] Start: 11-02-2017 SHINGRIX VACCINE (1 of 2) SHINGRIX VACCINE (1 of 2) [facility] Start: 11-02-2012 COLOGUARD (FIT-DNA) COLOGUARD (FIT-D NA) [facility] Start: 11-02-[address] COLONOGRAPHY [facility] Start: 11-02-2012 DIABETES SCREEN DIABETES SCREEN [facility] Start: 11-02-2012 Diabetes Screening Diabetes Screenin g [facility] Start: 11-02-2012 FECAL OCCULT BLOOD FECAL OCCULT BLOO D [facility] Start: 11-02-2012 Lipid 1996 panel - Serum or Plasma Lipid Screening [facility] Start: 11-02-2012 Lipid panel Lipid Screening [facility] Start: 11-02-2012 LIPID SCREEN LIPID SCREEN [facility] Start: 11-02-2012 Screening for malign ant neoplasm of colon [facility] Start: 11-02-2012 SIGMOIDOSCOPY SIGMOIDOSCOPY [facility] Start: 11-02-1986 Hepatitis B Vaccine (1 of 3 - 19+ 3-dose series) Hepatitis B Vaccine (1 of 3 - 19+ 3-dose series) [facility] Start: 11-02-1986 Urine microalbumin profile [facility] Start: 11-02-1985 Anxiety Screening Anxiety Screening [facility] Start: 11-02-1985 Depression Screening Depression Scre ening [facility] Start: 11-02-1985 HEPATITIS C SCREENING HEPATITIS C [facility] Start: 11-02-1985 Hepatitis C screening Hepatitis C [facility] Start: 11-02-1985 HIV SCREENING HIV SCREENING [facility] Start: 11-02-1985 HIV screening HIV Screening [facility] Start: 1979 Adult depression screening assessment DEPRESSION SCREENING [facility] Start: 11-02-1972 COVID-19 VACCINE (1) COVID-19 VACCIN E (1) [facility] Start: 05-05-1968 COVID-19 VACCINE (#1) COVID-19 VACCI NE (#1) [facility] Start: 1965 HEPATITIS B (1 of 3 - 3-dose series) HEPATITIS B (1 of 3 - 3-dose series) [facility] Start: 1965 Hepatitis B Vaccine (1 of 3 - 3-dose series) Hepatitis B Vaccine (1 of 3 - 3-dose series) [facility] End: 08-14-2024 DBT Breast - bilateral screening IDALMIS SCREENING W EDVIN Radiology Routine Encounter for screening mammogram for breast cancer 1 Occurrences starting 07/16/2023 until 08/14/2024 [facility] Work Phone: Comment on above: 1 Occurrences starti ng 07/16/2023 until 08/14/2024 DBT Breast - bilater al screening IDALMIS SCREENING W EDVIN Radiology Routine Encounter for screening mammogram for malignant neoplasm of breast 07/16/2023 8:51 AM EDT [facility] Work Phone: End: 08-16-2025 DBT Breast - bilateral screening IDALMIS SCREENING W EDVIN Radiology Routine Encounter for screening mammogram for breast cancer 1 Occurrences starting 07/17/2024 until 08/16/2025 [facility] Work Phone: Comment on above: 1 Occurrences starti ng 07/17/2024 until 08/16/2025 HIGH RISK HUMAN PAPILLOMA VIRUS (HPV), PCR FOR DETECTION AND GENOTYPING HIGH RISK HUMAN PAPILLOMA VIRUS (HPV), PCR FOR DETECTION AND GENOTYPING Lab Routine Encounter for screening for human papillomavirus (HPV) Pap smear for cervical cancer screening 07/16/2023 9:45 AM EDT [facility] Work Phone: End: 07-30-2022 IDALMIS SCREENING W EDVIN IDALMIS SCREENING W EDVIN Radiology Routine Encounter for screening mammogram for malignant neoplasm of breast 1 Occurrences starting 06/30/2021 until 07/30/2022 [facility] Work Phone: Comment on above: 1 Occurrences starti ng 06/30/2021 until 07/30/2022 PAP TEST PAP TEST Lab Rou gal Encounter for screening for human papillomavirus (HPV) Pap smear for cervical cancer screening 07/16/2023 9:45 AM EDT [facility] Work Phone: [facility] Payers Date Payer Category Payer Self-pay [id number] 2021 [employer] Blue [facility] BLUE ACCE PPO [id number] 2021 Unknown MARJAN JENSEN SS PPO [id number] 2021-Present [phone] [id number] [place] [id number] PPO [id number] 2021 Unknown MARJAN CASTANEDA ACCE SS PPO [id number] 2021-Present [phone] [id number] [place] [id number] PPO [id number] 2021 Unknown [id number] Unknown [id number] Unknown [id number] Social History Date Type Detail Facility Start: 07-13-2022 Tobacco smoking stat [facility] Never smoked tobacco [facility] Start: 06-30-2021 End: 07-17-2024 Alcohol intake Current drinker of alcohol (finding) [facility] Start: 05-06-2020 History SDOH Alcohol Comment socially [facility] Start: 1965 Sex Assigned At Not on file C [facility] Start: 06-20-2021 End: 06-30-2021 Exposure to SARS-CoV-2 (event) Not sure [facility] Start: 1965 Sex Assigned At Female W [facility] Start: 07-13-2022 Tobacco use and exposure Smokeless tobacco non-user [facility] Start: 07-13-2022 End: 07-16-2023 History of Social function [facility] Start: 07-13-2022 End: 07-16-2023 Tobacco use panel [facility] National Score (1-100), lower number is lower risk 49 [facility] Tobacco smoking stat us [facility]IS Unknown if ever smoked [facility] Work Phone: Start: 06-29-2024 Sex Female (finding) [facility] Functional Status Date Assessment Result Facility 02-08-2014 Are you deaf, or do you have serious difficulty hearing No 02/08/2014 1:49 PM Grecia Melgoza Ma No [facility] 02-08-2014 Are you blind, or do you have serious difficulty seeing, even when wearing glasses No 02/08/2014 1:49 PM Grecia Melgoza Ma No [facility] 02-08-2014 Do you have serious difficulty walking or climbing stairs No 02/08/2014 1:49 PM Grecia Melgoza Ma [facility] 02-08-2014 Do you have difficul ty dressing or bathing No 02/08/2014 1:49 PM Grecia Melgoza Ma [facility] 02-08-2014 Because of a physica l, mental, or emotional condition, do you have difficulty doing errands alone such as visiting a physician's office or shopping No 02/08/2014 1:49 PM Grecia Melgoza Ma [facility] Mental Status Date Assessment Result Facility 02-08-2014 Because of a physica l, mental, or emotional condition, do you have serious difficulty concentrating, remembering, or making decisions No 02/08/2014 1:49 PM Grecia Melgoza Ma [facility] Clinical Notes 06-30-2021 to 07-17-2024 Patient InstructionsJoe Souza MD - 07/17/2024 11:11 AM Connor Odonnell, Mammo Tech - 07/17/2024 10:50 AM Nika Penny, Mammography - 07/19/2023 10:26 AM EDT Note Date & Type Note Facility 07-17-2024 Instructions Joe Souza MD - 07/17/2024 11:32 AM EDT Why Is Protein So Important for Weight loss? consuming more protein not only reduces body weight but enhances body composition by decreasing fat mass while preserving fat-free mass During weight loss phase protein consumption (with normal kidney function) should be 1-1.6g protein per Kilogram of body weight (1kg=2.2lbs) On average Women need to Aim for a minimum 90g protein per day Consuming higher protein can also prevent weight regain after weight loss Protein consumption increases hormones responsible for satiety (feeling full)- these include Gut hormones like Glucagon-like peptide-1 (GLP-1), Cholecystokinin (CCK), Peptide Tyrosine-Tyrosine (PYY) and decreasing the Gut hormone responsible for causing hunger Ghrelin Protein has an increased thermogenesis effect of food- which means it take more calories to break down protein when consumed compared to carbohydrates or fats Protein also prevents a losing lean mass during weight loss (lose more fat and preserve fat free mass) which helps to increase resting energy expenditure (resting metabolic rate) Every pound of muscle aponte ~ 6 kcal per pound/day vs fat aponte ~ 2kcal per pound/day Carbohydrates - Why do You Crave Them? Eating too many refined carbohyrdates (sugar beverages, pastries, bread, pizza) which raises your blood glucose levels and therefore releasing insulin which in turn causes increase in hunger Carbohydrates suppress Ghrelin quickly but does not maintain the suppression for very long therefore hunger returns more quickly Consuming carbohydrates leads to a release of Dopamine feel good hormone in our brain So how do you Curb these cravings? Eating Whole Foods with more fiber - High fiber carbs are absorbed and digested slowly so it does not impact blood sugar levels as much and will help in making you feel [place] for longer; fiber also is healthy for your gut bacteria and can help with constipation. Remember- carbohydrates are not the enemy but know what a proper serving size is, choose nutritious carbohydrates and space them out between meals. Always- eat your protein first followed by your non starchy vegetables followed by your carbohydrates- it will help your body with your glucose and insulin regulation Processed Foods vs Whole Foods- Impact on Weight: People who eat Ultra Processed food tend to consume about 500 calories more per day Ultra Processed foods are considered Calorie Dense so when a person feels full they have typically already over eaten and consumed more calories Whole Foods (unprocessed foods) tend to be more more filling and more Nutrient Dense Unprocessed foods can be more expensive and not realistic for everyone however when you have the choice to consume unprocessed vs Ultra processed foods always pick unprocessed. Why can't people stop eating Ultra Processed foods? They are economical and optimized for taste by [employer] - they are designed to make you want to keep eating them- they feed common cravings and bypass the mechanisms that tell your brain you are full Benefits of eating Whole Foods and cutting out Ultra Processed Foods Increased concentration and focus (decreased brain fog), improved mood, better sleep, Decrease in fatigue, improvement in gut health, decreased inflammation, Likely WEIGHT LOSS Nutrition Reminders: NO NAKED CARBS!! Protein >= Carbs for each meal (if you are going to eat 50g carbs for lunch you should eat 50g protein or more). If you do not eat your carbs for lunch you do not get to save them for dinner- you use them or lose them. Balance your Protein between meals. Unless told otherwise your Minimum protein each day is 30grams per meal but don t be afraid to eat more (try to aim for 1.6g protein per Kilogram of bodyweight). Focus on WHOLE FOODS if you can as your Gut Microbiome will benefit and you will feel more satisfied - the only caviot to this is protein shakes if needed. Water intake should be a minimum of 64oz per day- but more is better (to an extent) unless you have a medical condition that requires you to keep it to a minimum. Nothing is off limits- this is not about restricting yourself- this about learning what your body can have and still respond well to and learning how to balance food and still feel good. Track your food, weigh your food, measure your portion sizes as most people underestimate their food by approximately 40%. You should be tracking your Carbohydrates and Protein daily. It s ok if you had a bad day- write it down and move on! Weigh yourself daily or at least 5 times per week, it will help to keep you accountable. If you are hungry- think about your stress level, your sleep (did you get 7.5-9hrs?) and your protein consumption- if you did not meet your goals then those could be contributing to your hunger. During weight loss phase it is ok to use two protein shakes per day and eating one meal along with it - studies have shown you will lose more weight and keep it off. Take a multivitamin daily Sit less Move more- Exercise including resistance training is very important for your health and if you are not getting routine exercise right now there will come a point when it will become an important piece of this process. Do Not skip meals- it could lead to you not getting enough protein or overeating at your next meal. Intermittent fasting can be a good tool for some but right now try to eat 3 regular meals. Only consume snacks if you are truly hungry. High Protein Snack Ideas 1. Jerky 2. [place]o mix without dried fruit 3. [place] roll-ups 4. Iranian yogurt 5. Veggies and yogurt dip 6. Tuna 7. Hard-boiled eggs 8. Peanut butter with celery 9. Cheese slices/ Cheese Stick 10. Handful of almonds, peanuts or walnuts 11. Cottage Cheese 12. Beef sticks 13. Protein bars 14. Canned [place] 15. Pumpkin seeds 16. Nut butter 17. Protein shakes 18. Avocado and chicken salad 19. Egg muffins 20. Leftover protein or lunch meat 21. 1/2 c blended cottage cheese or Iranian yogurt with dry ranch/Mrs. Dash/herb seasoning mix to make protein dip 22. 1/2 c blended cottage cheese with 1 Tbsp sugar-free dry cheesecake pudding mix 12g protein 10 carb 23. Pudding - 1 30 gm protein shake with 1/2 pkg sugar-free pudding 4 svgs - 7.8 gm protein, 5 carb each svg 24. SF Sunkist or Root Beer with 1-2 Tablespoons heavy whipping cream 25. Mini frozen dessert bites - layer protein yogurt, skinny syrup and crushed nuts and freeze Educational Podcasts: The Dr. Mora Show- Real Conversations about Health and Weight *November 15, 2023, how to determine your weight Gain Pattern to pick a weight loss medication or lifestyle plan *September 27, 2023, NEAT, Non- exercise activity thermogenesis - yes taking the stairs is good for you! *September 13, 2023, What to do when your weight loss plateaus * December 21, 2022 what you need to know about Carbohydrates and Weight *November 30, 2022 Protein why we need it and how to eat more Protein *November 09, 2022 Menopause and Weight Gain- All the Details with Dr. Erin Valerio *October 19, 2022 The Science Behind Ultra Processed Food and Weight Gain *August 03, 2022 Effects of sleep and Stress of Weight and Health with Dr. Zohra Buckner-Withers, DO * July 27, 2022 Recognizing and Resolving Emotional Eating with Dr. Chin Obesity: A Disease *July 27, 2022 Episode 80 Clinical conversations: The Role of Physical Activity in Weight Management * November 06, 2022 Episode 84 Clinical Conversations: NAFLD, The Garner Disease of Metabolic Syndrome *November 052019 Episode 20 Article Reviews: The Role Ultra Processed Diets Play in Weight Gain *October 18, 2019 Episode 21 Clinical Conversations: Breaking Weight Plateaus The Obesity Guide Podcast with Chapito Chin MD [employer] Drive, Jose Waters MD Conquer Your Weight, Chani Head MD Docs who lift podcast, Lena Herbert and Alcon Delgado Creating a Mindful Eating Environment: 10 Mindless Eating Solutions If you're looking for easier ways to make healthy changes to your diet and lifestyle, consider these simple mindless eating solutions for staying on-track with nutrition: Serve Salad and Vegetables First. Before bringing out your main dish, serve salad and vegetables first to ensure you're eating enough of this important food group. This strategy will also help you eat less of the rest of your dish which is likely higher in calories, etc. Serve Your Main [facility] on the Stove or Counter. Studies show that we're likely to eat less if our food is placed on the stove or counter rather than right in front of us. Eat on Smaller Plates. Similar to the strategy mentioned above, studies show that you're likely to consume less food if you're eating from a smaller plate. This is likely due to the increase of smaller portion sizes. Turn off Your Television. Watching television as you eat can be highly distracting, and it affects your ability to eat mindfully. For example: you're less likely to notice when you're full, so you might consume excess calories. Keep Mostly Water On-hand. Calories from drinks can add up quickly, especially in fruit juices, alcohol and soft drinks. By minimizing the amounts of those drinks on-hand, you're more likely to consume water when you're thirsty - and water has amazing health benefits! Keep Your Kitchen Organized. An organized refrigerator, counter and cabinet space makes you more likely to find and choose the foods which are healthiest for you. On the contrary, a messy kitchen space may make you more apt to grab the first item you see. Pre-cut Your Fruits and Vegetables. Let's admit it: We're more likely to put off eating produce if we have to go through the burden of cutting it first. Pre-cut fruits and vegetables will eliminate this extra step. Have at Least Six Single Servings of Lean Protein On-hand. This includes lean meats such as turkey and chicken, yogurt, eggs, nuts, beans and legumes. By having plenty of lean protein on-hand, you can better manage your appetite and hunger levels. Keep All Snack Foods in One Inconvenient Cupboard. You're less likely to reach for unhealthy snack foods if they're not all gazing up at you from plain sight! Keep Only a Fruit Bowl on Your Counter. This way, if you're one to grab foods based off of their availability, you'll reach for healthier fruits rather than less healthy snack foods. https://www.obesityaction.org/c ommunity/news/community-news/cr anse-r-jaukeuq-eating-environme nt/ documented in this encounter [facility] 07-17-2024 Note HNO ID: [id number] Author: NEJOE QURESHI MD Service: ? Author Type: Physician Type: Progress Notes Filed: 07/17/2024 11:42 Note Text: Investments Manager offered: Patient declines. Ashley is a 58 year old who presents for an annual gynecologic exam without complaints. Daughter called off wedding which she is happy about. Working a lot at work which has cut into her exercise time. Postmenopausal: Yes HRT use: No. Sexually active: Yes HPV vaccine: No Last pap smear: 2023 History of abnormal pap: No Bothersome pelvic pain: No Last mammogram: 2024 pending History of abnormal mammogram: No Sexually active: Yes Pain with intercourse: No Postcoital bleeding: No Hot flashes: No Night sweats: No OB History Gravida3 Para0 Term0 Preterm0 AB1 Living2 SAB1 IAB0 Ectopic0 Multiple0 Live Births0 Problem Relation Age of Onset Diabetes Mother Diet controlled Hypertension Mother other (hip problem) Mother Hip replacements other (Heart problem) Father Stent placed Hypertension Brother SOCIAL HISTORY Social History Tobacco Use Smoking status: Never Smokeless tobacco: Never Vaping Use Vaping status: Never Used Substance Use Topics Alcohol use: Yes Comment: socially Drug use: No REVIEW OF SYSTEMS Abdomen: No abdominal pain, nausea, vomiting, diarrhea, or constipation. No bloating, early satiety, indigestion, or increased flatulence. Bladder: No dysuria, gross hematuria, urinary frequency, urinary urgency, or incontinence Breast: No breast lumps, nipple d/c, overlying skin changes, redness or skin retraction Allergies and current medication updated:Yes SENSITIVE EXAM: The sensitive examination was discussed with the Patient or Patient's Authorized Service Captain. As applicable, any other physician, advance practice provider, medical student, or other health professional student that will be observing or involved in the sensitive examination for educational or training purposes was discussed with the Patient or Authorized Service Captain. The Patient or Authorized Service Captain has agreed to proceed with the sensitive examination. (Sensitive examination includes inspection and/or palpation of the breasts, pelvis, prostate and anorectal regions). EXAM: BP 118/76 Ht 5' 1 (1.55m) Wt 196 lb (88.9kg) LMP 03/30/2017 BMI 37.05 kg/(m2). GENERAL: pleasant, female in no apparent distress HEENT: Normocephalic, atraumatic, mucus membranes moist, and no lesions NECK: Supple, full range of motion, no adenopathy, and thyroid normal DERMATOLOGY: Normal, without lesions, non-icteric, and non-hirsute BREAST: soft, non-tender, symmetric, no dominant mass, normal nipple-areolar complex, no lymphadenopathy, and no nipple discharge ABDOMEN: soft, non-tender, and no masses PELVIC: external genitalia normal, normal Bartholin's glands, urethra, [place]'s glands, no vulvar lesions, no cervical lesions, good vaginal support, physiologic discharge present, normal appearing perineal body and perianal region BIMANUAL: uterus normal size, shape and consistency, no adnexal masses, and non-tender RECTOVAGINAL: deferred. NEURO: alert and oriented x3,exam grossly non-focal EXTREMITIES: normal ASSESSMENT/PLAN: 1) Health maintenance: Pap/HPV up to date. Mammogram ordered Mammogram up to date Nutrition, exercise and routine health maintenance exams reviewed. Colon cancer screening: up to date with screening 2) Follow up one year or sooner as needed 3) protein and nutrition reviewed Joe Arora MD [facility] 07-17-2024 History of Presen t illness Narrative Investments Manager offered: Patient declines. Ashley is a 58 year old who presents for an annual gynecologic exam without complaints. Daughter called off wedding which she is happy about. Working a lot at work which has cut into her exercise time. Postmenopausal: Yes HRT use: No. Sexually active: Yes HPV vaccine: No Last pap smear: 2023 History of abnormal pap: No Bothersome pelvic pain: No Last mammogram: 2024 pending History of abnormal mammogram: No Sexually active: Yes Pain with intercourse: No Postcoital bleeding: No Hot flashes: No Night sweats: No OB History Gravida3 Para0 Term0 Preterm0 AB1 Living2 SAB1 IAB0 Ectopic0 Multiple0 Live Births0 Problem Relation Age of Onset Diabetes Mother Diet controlled Hypertension Mother other (hip problem) Mother Hip replacements other (Heart problem) Father Stent placed Hypertension Brother SOCIAL HISTORY Social History Tobacco Use Smoking status: Never Smokeless tobacco: Never Vaping Use Vaping status: Never Used Substance Use Topics Alcohol use: Yes Comment: socially Drug use: No REVIEW OF SYSTEMS Abdomen: No abdominal pain, nausea, vomiting, diarrhea, or constipation. No bloating, early satiety, indigestion, or increased flatulence. Bladder: No dysuria, gross hematuria, urinary frequency, urinary urgency, or incontinence Breast: No breast lumps, nipple d/c, overlying skin changes, redness or skin retraction Allergies and current medication updated:Yes SENSITIVE EXAM: The sensitive examination was discussed with the Patient or Patient's Authorized Service Captain. As applicable, any other physician, advance practice provider, medical student, or other health professional student that will be observing or involved in the sensitive examination for educational or training purposes was discussed with the Patient or Authorized Service Captain. The Patient or Authorized Service Captain has agreed to proceed with the sensitive examination. (Sensitive examination includes inspection and/or palpation of the breasts, pelvis, prostate and anorectal regions). EXAM: BP 118/76 Ht 5' 1 (1.55m) Wt 196 lb (88.9kg) LMP 03/30/2017 BMI 37.05 kg/(m^2). GENERAL: pleasant, female in no apparent distress HEENT: Normocephalic, atraumatic, mucus membranes moist, and no lesions NECK: Supple, full range of motion, no adenopathy, and thyroid normal DERMATOLOGY: Normal, without lesions, non-icteric, and non-hirsute BREAST: soft, non-tender, symmetric, no dominant mass, normal nipple-areolar complex, no lymphadenopathy, and no nipple discharge ABDOMEN: soft, non-tender, and no masses PELVIC: external genitalia normal, normal Bartholin's glands, urethra, [place]'s glands, no vulvar lesions, no cervical lesions, good vaginal support, physiologic discharge present, normal appearing perineal body and perianal region BIMANUAL: uterus normal size, shape and consistency, no adnexal masses, and non-tender RECTOVAGINAL: deferred. NEURO: alert and oriented x3,exam grossly non-focal EXTREMITIES: normal ASSESSMENT/PLAN: 1) Health maintenance: Pap/HPV up to date. Mammogram ordered Mammogram up to date Nutrition, exercise and routine health maintenance exams reviewed. Colon cancer screening: up to date with screening 2) Follow up one year or sooner as needed 3) protein and nutrition reviewed Joe Arora MD documented in this encounter [facility] 07-17-2024 History of Presen t illness Narrative Radiology Service Progress Note PATIENT NAME: Ashley Zamarripa DATE OF SERVICE: July 17, 2024 TIME: 11:16 AM PATIENT IDENTITY VERIFICATION COMPLETED USING TWO (2) IDENTIFIERS: Name and Date of confirmed by patient verbally. FALL SCREENING: Has the patient had 2 falls in the last year or 1 fall with injury or currently using an Ambulatory Assistive Device (Walker, Cane, Wheelchair, Crutches, etc.)? No PATIENT GENDER DATA: Assigned female at . status: : No status: NO. PATIENT RELEVANT IMPLANT DATA REVIEWED: Not Applicable PATIENT PRESENTS WITH AN IMPLANTABLE OR ATTACHED RN HEMODIALYSIS: No RADIOLOGY DEPARTMENT: Mammography PERIPHERAL IV DATA: Not applicable SIGNED BY: Dalila Paige July 17, 2024 11:16 AM documented in this encounter [facility] 07-17-2024 Note HNO ID: [id number] Author: CONNOR MCBRIDE Mammo Tech Service: ? Author Type: Exerciser Horse Type: Progress Notes Filed: 07/17/2024 11:16 Note Text: Radiology Service Progress Note PATIENT NAME: Ashley Zamarripa DATE OF SERVICE: July 17, 2024 TIME: 11:16 AM PATIENT IDENTITY VERIFICATION COMPLETED USING TWO (2) IDENTIFIERS: Name and Date of confirmed by patient verbally. FALL SCREENING: Has the patient had 2 falls in the last year or 1 fall with injury or currently using an Ambulatory Assistive Device (Walker, Cane, Wheelchair, Crutches, etc.)? No PATIENT GENDER DATA: Assigned female at . status: : No status: NO. PATIENT RELEVANT IMPLANT DATA REVIEWED: Not Applicable PATIENT PRESENTS WITH AN IMPLANTABLE OR ATTACHED RN HEMODIALYSIS: No RADIOLOGY DEPARTMENT: Mammography PERIPHERAL IV DATA: Not applicable SIGNED BY: Dalila Paige July 17, 2024 11:16 AM [facility] 04-15-2024 Miscellaneous Notes July 19, 2023 PID: [id number] Ashley Zamarripa [address] [place] [address] Dear Ms. Zamarripa, We are pleased to inform you that the results of your recent breast imaging exam on 07/16/2023 are normal. Early detection of cancer is very important. We also understand recommendations regarding breast cancer screening are controversial. Please discuss with your primary care provider which strategy is best for you and whether a mammogram is right for you. Your imaging studies and report will be kept on file at [facility] as part of your permanent medical record and are available for your continuing care. Thank you for allowing us to help in meeting your health care needs. Sincerely, Dr. Brower Interpreting Radiologist [facility] (Normal over 40) documented in this encounter [facility] 07-16-2023 History of Presen t illness Narrative Investments Manager offered: Patient declines. Ramirez is a 57 year old who presents for an annual gynecologic exam without complaints. Daughter getting . Postmenopausal: Yes HRT use: No. Last Pap: 04/24/2018 normal HPV: 04/22/2018 negative History of abnormal pap: No Last mammogram: 2023 pending today History of abnormal mammogram: No Sexually active: no History of STDS: None Patient concerns for STD exposure: No. 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 Comments: Sexual Activity: Not Currently; Male Contraception: No contraception data on record PAST MEDICAL HISTORY Diagnosis Date Allergic rhinitis Arthritis Bursitis 03/16/2019 left knee Costochondritis Depression Generalized anxiety disorder Hypercholesterolemia PAST SURGICAL HISTORY Procedure Laterality Date DELIVERY ONLY 1995 and 1998 COLONOSCOPY GEN ANES 05/06/2020 Repeat in 10 years DILATION & CURETTAGE DX&/THER NONOBSTETRIC FAMILY HISTORY Problem Relation Age of Onset Diabetes Mother Diet controlled Hypertension Mother other (hip problem) Mother Hip replacements other (Heart problem) Father Stent placed Hypertension Brother SOCIAL HISTORY Social History Tobacco Use Smoking status: Never Smokeless tobacco: Never Vaping Use Vaping Use: Never used Substance Use Topics Alcohol use: Yes Comment: socially Drug use: No REVIEW OF SYSTEMS Abdomen: No abdominal pain, nausea, vomiting, diarrhea, or constipation. No bloating, early satiety, indigestion, or increased flatulence. Bladder: No dysuria, gross hematuria, urinary frequency, urinary urgency, or incontinence Breast: No breast lumps, nipple d/c, overlying skin changes, redness or skin retraction Allergies and current medication updated:Yes EXAM: BP 120/70 Ht 5' 1 (1.55m) Wt 191 lb (86.6kg) LMP 03/30/2017 BMI 36.11 kg/(m^2). GENERAL: pleasant, female in no apparent distress HEENT: Normocephalic, atraumatic, mucus membranes moist, and no lesions NECK: Supple, full range of motion, no adenopathy, and thyroid normal DERMATOLOGY: Normal, without lesions, non-icteric, and non-hirsute BREAST: soft, non-tender, symmetric, no dominant mass, normal nipple-areolar complex, no lymphadenopathy, and no nipple discharge ABDOMEN: soft, non-tender, and no masses PELVIC: external genitalia normal, normal Bartholin's glands, urethra, [place]'s glands, no vulvar lesions, no cervical lesions, good vaginal support, physiologic discharge present, normal appearing perineal body and perianal region, atrophic changes BIMANUAL: uterus normal size, shape and consistency, no adnexal masses, and non-tender RECTOVAGINAL: deferred. NEURO: alert and oriented x3,exam grossly non-focal EXTREMITIES: normal ASSESSMENT/PLAN: 1) Health maintenance: Pap done with HPV. Mammogram up to date Nutrition, exercise and routine health maintenance exams reviewed. Colon cancer screening: up to date with screening 2) Follow up one year or sooner as needed 3) Weight mgmt appt reviewed. Joe Arora MD documented in this encounter [facility] 07-16-2023 History of Presen t illness Narrative Radiology Service Progress Note PATIENT NAME: Ashley Zamarripa DATE OF SERVICE: July 16, 2023 TIME: 8:52 AM PATIENT IDENTITY VERIFICATION COMPLETED USING TWO (2) IDENTIFIERS: Name and Date of confirmed by patient verbally. FALL SCREENING: Has the patient had 2 falls in the last year or 1 fall with injury or currently using an Ambulatory Assistive Device (Walker, Cane, Wheelchair, Crutches, etc.)? No PATIENT GENDER DATA: Female. status: : No status: NO. PATIENT RELEVANT IMPLANT DATA REVIEWED: Not Applicable PATIENT PRESENTS WITH AN IMPLANTABLE OR ATTACHED RN HEMODIALYSIS: No RADIOLOGY DEPARTMENT: Mammography PERIPHERAL IV DATA: Not applicable SIGNED BY: Primo Paigeo Lm July 16, 2023 8:52 AM documented in this encounter [facility] 07-13-2022 Miscellaneous Notes July 14, 2022 PID: [id number] Ashley Zamarripa [address] [place] [address] Dear Ms. Zamarripa, We are pleased to inform you that the results of your recent breast imaging exam on 07/13/2022 are normal. Early detection of cancer is very important. We also understand recommendations regarding breast cancer screening are controversial. Please discuss with your primary care provider which strategy is best for you and whether a mammogram is right for you. Your imaging studies and report will be kept on file at [facility] as part of your permanent medical record and are available for your continuing care. Thank you for allowing us to help in meeting your health care needs. Sincerely, Dr. Pina Interpreting Radiologist [facility] (Normal over 40) documented in this encounter [facility] 07-13-2022 History of Presen t illness Narrative Radiology Service Progress Note PATIENT NAME: Ashley Zamarripa DATE OF SERVICE: July 13, 2022 TIME: 10:11 AM PATIENT IDENTITY VERIFICATION COMPLETED USING TWO (2) IDENTIFIERS: Name and Date of confirmed by patient verbally. FALL SCREENING: Has the patient had 2 falls in the last year or 1 fall with injury or currently using an Ambulatory Assistive Device (Walker, Cane, Wheelchair, Crutches, etc.)? No PATIENT GENDER DATA: Female. status: : No status: NO. PATIENT RELEVANT IMPLANT DATA REVIEWED: Not Applicable RADIOLOGY DEPARTMENT: Mammography PERIPHERAL IV DATA: Not applicable SIGNED BY: RT Nate(R) July 13, 2022 10:11 AM documented in this encounter [facility] 06-30-2021 Instructions Joe Bolanos MD - 06/30/2021 9:24 AM EDT The Obesity Code by Dr. Liborio Mejia Life in the Fasting [place] by Madeleine Soliman, Repeat By Candice Mascorro documented in this encounter [facility] 06-30-2021 History of Presen t illness Narrative Ashley is a 55 year old who presents for an annual gynecologic exam without complaints. 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 Has two children- daughter speech pathologist at [employer] and son in [employer]. Postmenopausal: Yes since age 52 HRT use: No. Last Pap: 04/24/2018 normal HPV: 04/22/2018 negative History of abnormal pap: No Last mammogram: 2021 pending History of abnormal mammogram: No Sexually active: Yes History of STDS: None Patient concerns for STD exposure: No. 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: Sexual Activity: Yes; Male Contraception: No contraception data on record PAST MEDICAL HISTORY Diagnosis Date Allergic rhinitis Arthritis Bursitis 03/16/2019 left knee Costochondritis Depression Generalized anxiety disorder Hypercholesterolemia PAST SURGICAL HISTORY Procedure Laterality Date DELIVERY ONLY 1995 and 1998 COLONOSCOPY GEN ANES 05/06/2020 Repeat in 10 years DILATION & CURETTAGE DX&/THER NONOBSTETRIC FAMILY HISTORY Problem Relation Age of Onset Diabetes Mother Diet controlled Hypertension Mother other (hip problem) Mother Hip replacements other (Heart problem) Father Stent placed Hypertension Brother SOCIAL HISTORY Social History Tobacco Use Smoking status: Never Smoker Smokeless tobacco: Never Used Vaping Use Vaping Use: Never used Substance Use Topics Alcohol use: Yes Comment: socially Drug use: No REVIEW OF SYSTEMS Abdomen: No abdominal pain, nausea, vomiting, diarrhea, or constipation. No bloating, early satiety, indigestion, or increased flatulence. Bladder: No dysuria, gross hematuria, urinary frequency, urinary urgency, or incontinence Breast: No breast lumps, nipple d/c, overlying skin changes, redness or skin retraction Allergies and current medication updated:Yes EXAM: BP 124/78 Ht 5' 1 (1.55m) Wt 187 lb (84.8kg) LMP 03/30/2017 BMI 35.35 kg/(m^2). GENERAL: pleasant, female in no apparent distress HEENT: Normocephalic, atraumatic, mucus membranes moist and no lesions NECK: Supple, full range of motion, no adenopathy and thyroid normal DERMATOLOGY: Normal, without lesions, non-icteric and non-hirsute BREAST: soft, non-tender, symmetric, no dominant mass, normal nipple-areolar complex, no lymphadenopathy and no nipple discharge ABDOMEN: soft, non-tender and no masses PELVIC: external genitalia normal, normal Bartholin's glands, urethra, [place]'s glands, no vulvar lesions, no cervical lesions, good vaginal support, physiologic discharge present, normal appearing perineal body and perianal region BIMANUAL: uterus normal size, shape and consistency, no adnexal masses and non-tender RECTOVAGINAL: deferred. NEURO: alert and oriented x3,exam grossly non-focal EXTREMITIES: normal ASSESSMENT/PLAN: 1) Health maintenance: Pap/HPV up to date. Mammogram ordered Mammogram up to date Nutrition, exercise and routine health maintenance exams reviewed. Calcium/Vitamin D supplementation information provided. Colon cancer screening: up to date with screening 2) Follow up one year or sooner as needed Joe Neyhart-Bolanos, MD Investments Manager offered: Patient declines. documented in this encounter [facility] 06-30-2021 History of Presen t illness Narrative Radiology Service Progress Note PATIENT NAME: Ashley Zamarripa DATE OF SERVICE: June 30, 2021 TIME: 8:31 AM PATIENT IDENTITY VERIFICATION COMPLETED USING TWO (2) IDENTIFIERS: Name and Date of confirmed by patient verbally. FALL SCREENING: Has the patient had 2 falls in the last year or 1 fall with injury or currently using an Ambulatory Assistive Device (Walker, Cane, Wheelchair, Crutches, etc.)? No PATIENT GENDER DATA: Female. status: : No status: NO. PATIENT RELEVANT IMPLANT DATA REVIEWED: Not Applicable RADIOLOGY DEPARTMENT: Mammography PERIPHERAL IV DATA: Not applicable SIGNED BY: RT Ann(R) June 30, 2021 8:31 AM documented in this encounter [facility] Evaluation note Diagnosis Encounter for gynecological examination (general) (routine) without abnormal findings- Primary Encounter for screening mammogram for malignant neoplasm of breast Other screening mammogram [facility] Diagnosis Encounter for gynecological examination (general) (routine) without abnormal findings Encounter for screening mammogram for breast cancer [facility] noteNo assessment information availableWMercy [facility] Work Phone: Evaluation note* Diagnosis Encounter for screening mammogram for malignant neoplasm of breast Other screening mammogram [facility] Diagnosis Encounter for gynecological examination (general) (routine) without abnormal findings- Primary Encounter for screening for human papillomavirus (HPV) Special screening examination for human papillomavirus (HPV) Pap smear for cervical cancer screening Screening for malignant neoplasm of the cervix Encounter for screening mammogram for breast cancer documented in this encounter [facility] note* Diagnosis Encounter for screening mammogram for malignant neoplasm of breast Other screening mammogram documented in this encounter [facility] note* Diagnosis Encounter for gynecological examination (general) (routine) without abnormal findings- Primary Encounter for screening mammogram for breast cancer documented in this encounter [facility] note* Diagnosis Encounter for screening mammogram for breast cancer documented in this encounter [facility] for referral (narrative)* Diagnostic Procedure Only (Routine) - Pending Review Specialty Diagnoses / Procedures Referred By Mckay serrano Referred To Contact [facility] Diagnoses Encounter for screening mammogram for malignant neoplasm of breast Procedures IDALMIS SCREENING W EDVIN SCREENING DIGITAL BREAST TOMOSYNTHESIS BI SCREENING MAMMOGRAPHY BI 2-VIEW BREAST INC CAD Joe Souza MD [address] [place] [address] [facility] [address] [address] Referral ID Status Reason Start Date Expiration Date Visits Requested Visits Authorized [id number] Pending Review Auto-Generat ed Referral 06/30/2021 07/30/2022 1 1 [facility] for referral (narrative)* Diagnostic Procedure Only (Routine) - Closed Specialty Diagnoses / Procedures Referred By Mckay serrano Referred To Contact [facility] Diagnoses Encounter for gynecological examination (general) (routine) without abnormal findings Encounter for screening mammogram for breast cancer Procedures IDALMIS SCREENING W EDVIN SCREENING BREAST DGTL EDVIN UNI/BILAT ADD ON SCREENING MAMMOGRAPHY BI 2-VIEW BREAST INC CAD Denise Melchor MD [address] [place] [address] [facility] [address] [place] [address] Referral ID Status Reason Start Date Expiration Date V isits Requested Visits Authorized [id number] Closed Auto-Generate d Referral 06/28/2020 07/28/2021 3 1 [facility] for referral (narrative)* Diagnostic Procedure Only (Routine) - Closed Specialty Diagnoses / Procedures Referred By Mckay serrano Referred To Contact [facility] Diagnoses Encounter for screening mammogram for malignant neoplasm of breast Procedures IDALMIS SCREENING W EDVIN SCREENING DIGITAL BREAST TOMOSYNTHESIS BI SCREENING MAMMOGRAPHY BI 2-VIEW BREAST INC CAD Joe Souza MD [address] [place] [address] [facility] [address] [place], [place] [id number] Referral ID Status Reason Start Date Expiration Date V isits Requested Visits Authorized [id number] Closed Auto-Generate d Referral 06/30/2021 07/30/2022 1 1 [facility] for referral (narrative)* Diagnostic Procedure Only (Routine) - Authorized Specialty Diagnoses / Procedures Referred By Mckay serrano Referred To Contact [facility] Diagnoses Encounter for screening mammogram for breast cancer Procedures IDALMIS SCREENING W EDVIN SCREENING DIGITAL BREAST TOMOSYNTHESIS BI SCREENING MAMMOGRAPHY BI 2-VIEW BREAST INC CAD Joe Souza MD [address] [place] [address] [facility] [address] [place] [phone] Referral ID Status Reason Start Date Expiration Date Visits Requested Visits Authorized [id number] Authorized Auto-Generat ed Referral 07/16/2023 08/14/2024 1 1 [facility] for referral (narrative)No reason for referral information [facility]: Reason for visit Narrative* Diagnostic Procedure Only (Routine) - Closed Specialty Diagnoses / Procedures Referred By Mckay serrano Referred To Contact [facility] Diagnoses Encounter for gynecological examination (general) (routine) without abnormal findings Encounter for screening mammogram for breast cancer Procedures IDALMIS SCREENING W EDVIN SCREENING BREAST DGTL EDVIN UNI/BILAT ADD ON SCREENING MAMMOGRAPHY BI 2-VIEW BREAST INC CAD Denise Melchor MD [address] [place] [address] [facility] [address] [place] [address] Referral ID Status Reason Start Date Expiration Date V isits Requested Visits Authorized [id number] Closed Auto-Generate d Referral 06/28/2020 07/28/2021 3 1 [facility] for visit Narrative* Diagnostic Procedure Only (Routine) - Closed Specialty Diagnoses / Procedures Referred By Mckay t Referred To Contact [facility] Diagnoses Encounter for screening mammogram for malignant neoplasm of breast Procedures IDALMIS SCREENING W EDVIN SCREENING DIGITAL BREAST TOMOSYNTHESIS BI SCREENING MAMMOGRAPHY BI 2-VIEW BREAST INC CAD Joe Souza MD [address] [place] [address] [facility] [address] [place] [address] Referral ID Status Reason Start Date Expiration Date V isits Requested Visits Authorized [id number] Closed Auto-Generate d Referral 06/30/2021 07/30/2022 1 1 [facility] for visit Narrative* Diagnostic Procedure Only (Routine) - Closed Specialty Diagnoses / Procedures Referred By Mckay serrano Referred To Contact [facility] Diagnoses Encounter for screening mammogram for malignant neoplasm of breast Procedures IDALMIS SCREENING W EDVIN SCREENING DIGITAL BREAST TOMOSYNTHESIS BI SCREENING MAMMOGRAPHY BI 2-VIEW BREAST INC CAD Joe Souza MD [address] [place] [address] [facility] [address] [place] [address] Referral ID Status Reason Start Date Expiration Date V isits Requested Visits Authorized [id number] Closed Auto-Generate d Referral 04/21/2023 05/20/2024 1 1 [facility] for visit Narrative* Diagnostic Procedure Only (Routine) - Closed Specialty Diagnoses / Procedures Referred By Mckay serrano Referred To Contact [facility] Diagnoses Encounter for screening mammogram for breast cancer Procedures IDALMIS SCREENING W EDVIN SCREENING DIGITAL BREAST TOMOSYNTHESIS BI SCREENING MAMMOGRAPHY BI 2-VIEW BREAST INC CAD Joe Souza MD [address] [place] [address] Phone: tel: fax: [facility] [address] [place] [address] Referral ID Status Reason Start Date Expiration Date V isits Requested Visits Authorized [id number] Closed Auto-Generate d Referral 07/16/2023 08/14/2024 1 1 [facility] Advance Directives Documents on File Type Date Recorded Patient Service Captain Expl anation Advance Directive(s) 05/06/2020 9:18 AM Advance Directive(s) 04/17/2020 11:18 AM Documents on File Type Date Recorded Patient Service Captain Expl anation Advance Directive(s) 05/06/2020 9:18 AM Advance Directive(s) 04/17/2020 11:18 AM Summary Purpose Family History No Family History Records FoundNo Family History Records Found Additional Source Comments Source Comments (unrecognize d section and content) In the event this informatio n is protected by the Federal Confidentiality of Alcohol and Drug Abuse Patient Records regulations: The Federal rules restrict any use of the information to criminally investigate or prosecute any alcohol or drug abuse patient.[facility] the event this information is protected by the Federal Confidentiality of Alcohol and Drug Abuse Patient Records regulations: The Federal rules restrict any use of the information to criminally investigate or prosecute any alcohol or drug abuse patient.[facility] the event this information is protected by the Federal Confidentiality of Alcohol and Drug Abuse Patient Records regulations: The Federal rules restrict any use of the information to criminally investigate or prosecute any alcohol or drug abuse patient.[facility] the event this information is protected by the Federal Confidentiality of Alcohol and Drug Abuse Patient Records regulations: The Federal rules restrict any use of the information to criminally investigate or prosecute any alcohol or drug abuse patient.[facility] the event this information is protected by the Federal Confidentiality of Alcohol and Drug Abuse Patient Records regulations: The Federal rules restrict any use of the information to criminally investigate or prosecute any alcohol or drug abuse patient.[facility] the event this information is protected by the Federal Confidentiality of Alcohol and Drug Abuse Patient Records regulations: The Federal rules restrict any use of the information to criminally investigate or prosecute any alcohol or drug abuse patient.[facility] the event this information is protected by the Federal Confidentiality of Alcohol and Drug Abuse Patient Records regulations: The Federal rules restrict any use of the information to criminally investigate or prosecute any alcohol or drug abuse patient.[facility] the event this information is protected by the Federal Confidentiality of Alcohol and Drug Abuse Patient Records regulations: The Federal rules restrict any use of the information to criminally investigate or prosecute any alcohol or drug abuse patient.[facility] the event this information is protected by the Federal Confidentiality of Alcohol and Drug Abuse Patient Records regulations: The Federal rules restrict any use of the information to criminally investigate or prosecute any alcohol or drug abuse patient.[facility] the event this information is protected by the Federal Confidentiality of Alcohol and Drug Abuse Patient Records regulations: The Federal rules restrict any use of the information to criminally investigate or prosecute any alcohol or drug abuse patient.[facility] the event this information is protected by the Federal Confidentiality of Alcohol and Drug Abuse Patient Records regulations: The Federal rules restrict any use of the information to criminally investigate or prosecute any alcohol or drug abuse patient.[facility] Reason for Visit (unrecogniz ed section and content) Reason Comments Yearly Exam Reason Comments Refill Request Care Teams (unrecognized sec tion and content) Manager Document Control Relationship Specialty Start Date End Date Aureliano Nicole DO [address] [facility] [address] [place] [address] PCP - General Family Practice 04/17/20 Manager Document Control Relationship Specialty Start Date End Date Aureliano Nicole DO [address] [facility] [address] [place] [address] PCP - General Family Practice 04/17/20 Manager Document Control Relationship Specialty Start Date End Date Aureliano Nicole DO [address] [facility] [address] [place] [address] PCP - General Family Practice 04/17/20 Manager Document Control Relationship Specialty Start Date End Date Aureliano Nicole DO PCP - General Family Medicine 04/17/20 Team Status: Active Member Role Status Dates Dr. Aureliano Brower MD Family Provider Active Lennie Gee DO Primary Care Provider Active Team Status: Inactive Member Role Status Dates Lennie Gee DO Primary Care Provider, Attending Provider Active Manager Document Control Relationship Specialty Start Date End Date Aureliano Nicole DO PCP - General Family Medicine 04/17/20 Manager Document Control Relationship Specialty Start Date End Date Landy Jenkins MD [address] [facility] [address] [place], [place] [id number] PCP - General Internal Medicine 07/16/23 Manager Document Control Relationship Specialty Start Date End Date Landy Jenkins MD [address] [facility] [address] [place], [place] [address] PCP - General Internal Medicine 07/16/23 Manager Document Control Relationship Specialty Start Date End Date Landy Jenkins MD [address] [facility] [address] [place], [place] [address] PCP - General Internal Medicine 07/16/23 Team Status: Active Member Role Status Dates Dr. Aureliano Brower MD Family Provider Active Landy Jenkins MD Primary Care Provider Active Team Status: Inactive Member Role Status Dates Landy Jenkins MD Primary Care Provider Active St art: June 23, 2024 End: June 23, 2024 Landy Jenkins MD Attending Provider Active Start : June 23, 2024 End: June 23, 2024 Landy Jenkins MD Referring Provider Active Start : June 23, 2024 End: June 23, 2024 Manager Document Control Relationship Specialty Start Date End Date Landy Jenkins MD [address] [facility] [address] [place] [address] PCP - General Internal Medicine 07/16/23 Manager Document Control Relationship Specialty Start Date End Date Landy Jenkins MD [address] [facility] [address] [place], [place] [id number] PCP - General Internal Medicine 07/16/23 Goals (unrecognized section and content) Goals may be documented in a n alternate sectionGoals may be documented in an alternate sectionGoals may be documented in an alternate section INFORMATION SOURCE (unrecogn ized section and content) DATE CREATED AUTHOR 07/01/2024 [facility] DATE CREATED AUTHOR AUTHOR'S LOW DESAIMICHELE 07/18/2024 [facility] FOR RECORDS PERTAINING TO PATIENTS WHO ARE OR HAVE BEEN ENROLLED IN A CHEMICAL DEPENDENCY/SUBSTANCEABUSE PROGRAM, SOME INFORMATION MAY BE OMITTED. This clinical summary was aggregated from multiple sources. Caution should be exercised in using it in the provision of clinical care. This summary normalizes information from multiple sources, and as a consequence, information in this document may materially change the coding, format and clinical context of patient data. In addition, data may be omitted in some cases. CLINICAL DECISIONS SHOULD BE BASED ON THE PRIMARY CLINICAL RECORDS. [employer] [facility] provides no warranty or guarantee of the accuracy or completeness of information in this document.
[2024-10-16 13:08] LABS: Cholesterol 193 mg/dL (<=200); Low Density Lipoprotein Calc. 109 mg/dL; Triglycerides 116 mg/dL; Very Low Density Lipoprotein 23 mg/dL (5-40); cholesterol:hdl ratio screen 3.17
== END | disposition home or self-care (01) ==
LOC: MFPLAB 08:34
PROVIDERS: PCP Family Medicine; Referring Provider Family Medicine; Visit Provider Family Medicine
DX: E78.00 Pure hypercholesterolemia, unspecified (principal); E66.3 Overweight
CPT/HCPCS: 36415; 80061; 84443